=== PATIENT | male | born 1950 | race Caucasian/White ===

== ENCOUNTER 2023-11-02 09:43 | Outpatient (AMB) | payer MEDICARE, SELFPAY ==
--- NOTE | 2023-11-02 09:52 | A.OFFPC_ITS ---
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 Patient reports he needs medication refills. 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 Accompanied by: Self / Same As Patient Allergies No Known Allergies Allergy (Verified 11/02/23 10:02) Medication List - Last Reconciled 11/02/23 by Boubacar Gonzalez MD amlodipine 5 mg PO DAILY atorvastatin 40 mg PO DAILY cetirizine 10 mg PO DAILY PRN lisinopril-hydrochlorothiazide 20-25 mg 1 tab PO DAILY multivitamin 1 tab PO DAILY vit C-E-zinc ye-fbli-lry-zeax 250 mg-200 unit -12.5 mg-1 mg (ICaps AREDS2) caps PO Tobacco use date assessed: 11/02/23 Fall risk assessment: 1 Fall in past year (slipped on ice) Last assessed Fall Risk: 11/02/23 Dental Screening Dental Screen Date: 11/02/23 Did you have a dental visit in the last 12 months?: Yes Did you have a dental problem in the last 6 months where you did not have access to dental care?: No Was dental information given to patient?: Patient has dentist HPI 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 Dr Tariq Last office visit/CPE: CPE 1 yr ago Acute issue(s): Med Refill - Amlodipine PMHx: Aortic heart valve stenosis & Murmur. Dr Cherry. , HTN, HLD, Allergies Rhinitis. AMD Dr Shabazz SurgHx: R Leg, R Wrist. Laminectomies. L rotator cuff, R knee, R rotator Cuff . Biceps Tendon repair. FHx: Brother. Heart disease. SocHx: Quit in 1980s. EtOH; 6-8 beers a month. No drugs PFSH Medical History (Updated 11/02/23 @ 10:25 by Sincere Castanon) Broken wrist History of broken leg High cholesterol Hypertension Surgical History (Updated 11/02/23 @ 10:18 by Beronica Matson [facility]) History of knee surgery History of rotator cuff surgery History of laminectomy Social History Household Members: Children Both parents involved: No Caregiver staying overnight: No Housing: House Are you a primary home day care provider to a significant other at home: No Do you presently have visiting nurse or other home services: No 75 years or older and lives alone: No Alcohol intake: current Alcohol intake frequency: a few times a month Alcohol type: beer Patient Tobacco Use Status: Former Tobacco user Cigarette Packs Per Day: 1 Years Smoked: 20 e-Cigarette/Vaping Use: Never Used service: Yes ([employer] ) Current occupational status: retired Current occupational exposures/hazards: No Cognitive needs: No Hearing needs: Yes (wears hearing aids) Vision needs: No Questionnaire PHQ-9 Over the last 2 weeks, how often have you been bothered by any of the following problems? 1. Little interest or pleasure in doing things: not at all 2. Feeling down, depressed, or hopeless: not at all 3. Trouble falling or staying asleep, or sleeping too much: not at all 4. Feeling tired or having little energy: not at all 5. Poor appetite or overeating: not at all 6. Feeling bad about yourself - or that you are a failure or have let yourself or your family down: not at all 7. Trouble concentrating on things, such as reading the newspaper or watching television: not at all 8. Moving or speaking so slowly that other people could have noticed. Or the opposite - being so fidgety or restless that you have been moving around a lot more than usual: not at all 9. Thoughts that you would be better off or of hurting yourself in some way: not at all Total score: 0 Depression Screening Interpretation: Negative Depression Screening Done: Yes 26754 - PHQ-9 Billing: Yes Source: Developed by Drs. Ramon Valdovinos, Violeta Diaz, Dhaval Torrez and colleagues, with an educational rhina from [employer]. Thrive Questionnaire Date Thrive assessed: 11/02/23 I am a: Patient What is your living situation today?: I have a steady place to live Within the past 12 months, did the food you bought not last and you didn't have the money to get more?: Never true Within the past 12 months, did you worry whether your food would run out before you got money to buy more?: Never true Do you have trouble paying for medicines?: No Do you have trouble getting transportation to medical appointments?: No Do you have trouble paying your heating and electricity bill?: No Do you have trouble taking care of your child, family member or friend?: No Do you have trouble with day-to-day activities such as bathing, preparing meals, shopping, managing finances, etc.?: No Are you currently unemployed and looking for a job?: No Are you interested in more education?: No Please select the resources that you would like help with: None Currently or been in a relationship where the following occur: no concerns reported THRIVE Score: 0 AUDIT C Alcohol Use Questionnaire (AUDIT-C) 1. How often do you have a drink containing alcohol?: Never 3. How often do you have six or more drinks on one occasion?: Never Total Score: 0 RAN-7 AMB Questionnaire RAN-7 Date RAN - 7 assessed: 11/02/23 Feeling nervous, anxious, or on edge: 0 = Not at all Not being able to stop or control worryin = Not at all Worrying too much about different things: 0 = Not at all Trouble relaxin = Not at all Being so restless that it is hard to sit still: 0 = Not at all Becoming easily annoyed or irritable: 0 = Not at all Feeling afraid as if something awful might happen: 0 = Not at all Total RAN-7 score (0-4 normal; 5-9 mild; 10-14 moderate; 15-21 severe): 0 Source: Developed by Drs. Ramon Valdovinos, Violeta Diaz, Dhaval Torrez and colleagues, with an educational rhina from [employer]. RAN-7 Assessment Billing RAN-7 Assessment Tool: RAN-7 Assessment 52252 Review of Systems Const Denies chills, Denies fatigue, Denies fever(s), Denies headache(s) and Denies weakness ENT Denies dizziness and Denies headache(s) Card Denies chest pain, Denies lightheadedness, Denies dyspnea and Denies other (Palpitations) Resp Denies cough, Denies dyspnea, Denies wheezing and Denies other ( shortness of breath) Musc Denies numbness and Denies tingling Neuro Denies dizziness, Denies headache(s), Denies numbness, Denies tingling, Denies paresthesias and Denies weakness Psych Denies anxiety and Denies depression Endo Denies fatigue Aller/Immun Denies wheezing Physical exam (Primary Care) BMI result Body Mass Index 39.0 Depression Screening Interpretation: Negative Currently or been in a relationship where the following occur: no concerns reported Const General: no acute distress and well developed Nutritional Appearance: well nourished Orientation/consciousness: patient oriented x3 HENMT Head: Yes normocephalic and Yes atraumatic Eyes General: appearance normal, both eyes and all related structures Pupils: Equal, round and reactive pupils present EOM: EOMs intact bilaterally Resp Effort & Inspection: normal respiratory effort Auscultation: clear to auscultation bilaterally Cardio Rate: regular rate Rhythm: regular rhythm Heart sounds: Murmur heart sound present (5/6 loud systolic murmur) Neuro General: patient oriented x3 and gait normal Cranial nerves: Yes Equal, round and reactive pupils present Psych Affect: normal affect Assessment and Plan Assessment & Plan (1) Hypertension: Code(s): I10 - Essential (primary) hypertension Plan: Blood?pressure?is?controlled.??Goal?is?less?than?130/80?as?patient?has?an?aortic ?valve?stenosis Continue?current?medication?regimen (2) Aortic stenosis: Code(s): I35.0 - Nonrheumatic aortic (valve) stenosis Plan: 5/6?systolic?murmur?over?aortic?region Patient?says?he?is?followed?by??and?saw?him?about?a?year?ago. Should?follow-up - will?make?referral (3) High cholesterol: Code(s): E78.00 - Pure hypercholesterolemia, unspecified Plan: History?of?hyperlipidemia?and?taking?atorvastatin?40?mg?daily Check?lipids (4) Allergic rhinitis: Code(s): J30.9 - Allergic rhinitis, unspecified Plan: Continue?cetirizine (5) Heart murmur: Code(s): R01.1 - Cardiac murmur, unspecified Plan: As?above,?patient?has?history?of?aortic?stenosis.??Follow- up?with?Cardiology?as?recommended. (6) Laboratory exam ordered as part of routine general medical examination: Code(s): Z00.00 - Encounter for general adult medical examination without abnormal findings Plan: Check?labs Orders: Orders Comprehensive [place]. Panel Fast Today Z00.00 - Encounter for general adult medical examination without abnormal findings Complete Blood Count Auto Diff Today Z00.00 - Encounter for general adult medical examination without abnormal findings Lipid Panel Today Z00.00 - Encounter for general adult medical examination without abnormal findings Microalbumin, Random (w Creat) Today I10 - Essential (primary) hypertension TSH reflex Free T4 Today Z00.00 - Encounter for general adult medical examination without abnormal findings Prostate Specific Antigen Scr Today Z12.5 - Encounter for screening for malignant neoplasm of prostate UA and rflx microscopic Today Z00.00 - Encounter for general adult medical examination without abnormal findings Referrals Cardiology Referral I35.0 - Nonrheumatic aortic (valve) stenosis Medications: New amlodipine 5 mg PO DAILY 90 tabs 3RF 90 days Coding Level of Care Code New Pt Level 3 (14352) Diagnoses Hypertension I10 Aortic stenosis I35.0 High cholesterol E78.00 Allergic rhinitis J30.9 Heart murmur R01.1 Laboratory exam ordered as part of routine general medical examination Z00.00 Additional Codes RAN-7 Assessment Billing - RAN-7 Assessment Tool: RAN-7 Assessment 96705 ([id number])
[2023-11-02 09:54] VITALS: BP 118/52; PULSE 83; RESP 12; O2SAT 97; BMI 39.0
== END 2023-11-02 10:30 | disposition home or self-care (01) ==
PROVIDERS: PCP Family Medicine; Visit Provider Family Medicine
DX: I10 Essential (primary) hypertension (principal); I35.0 Nonrheumatic aortic (valve) stenosis; E78.00 Pure hypercholesterolemia, unspecified; J30.9 Allergic rhinitis, unspecified; R01.1 Cardiac murmur, unspecified; Z00.00 Encounter for general adult medical examination without abnormal findings
CPT/HCPCS: 99203

== ENCOUNTER 2023-11-02 10:54 | Outpatient (REF) | payer MEDICARE, SELFPAY ==
[2023-11-02 14:10] LABS: Appearance Urine Clear; Color Urine Yellow; Glucose Urine UA Negative (Negative); Leukocyte Esterase Urine Negative (Negative); Nitrite Urine Negative (Negative); Urine Blood Negative (Negative); Urine Ketones Negative (Negative); Urine Protein Negative (Neg-Trace)
[2023-11-02 14:18] LABS: Basophils Absolute Auto 0.1 X10*3/uL (0.0-0.2); Basophils Percent Auto 0.7 % (0-2); Eosinophils Absolute Auto 0.2 X10*3/uL (0.0-0.4); Eosinophils Percent Auto 1.6 % (0-4); Hematocrit 39.9 % (42.0-52.0); Hemoglobin 13.6 g/dl (14.0-18.0); Imm Gran Abs Auto 0.03 X10*3/uL (0.00-0.03); Imm Gran Pct Auto 0.3 % (0.0-0.4); Lymphocytes Absolute Auto 5.5 X10*3/uL (1.2-4.9); Lymphocytes Percent Auto 55.7 % (20-40); MANUAL DIFF FLAG SCAN; Mean Corpuscular HGB Conc 34.1 g/dl (31.0-36.0); Mean Corpuscular Hemoglobin 32.2 pg (27.0-33.0); Mean Corpuscular Volume 94.3 fL (80.0-98.0); Mean Platelet Volume 10.6 fL (9.4-12.4); Monocytes Absolute Auto 0.6 X10*3/uL (0.1-1.2); Monocytes Percent Auto 6.4 % (2-11); Neutrophils Absolute Auto 3.5 x10*3/uL (2.0-8.3); Neutrophils Percent Auto 35.3 % (45-73); Platelet Count 192 X10*3/uL (160-400); Red Blood Count 4.23 X10*6/uL (4.60-5.80); Red Cell Distribution Width 12.8 % (11.0-16.0); SCAN SMEAR FLAG 1; White Blood Count 9.8 X10*3/uL (4.8-10.8)
[2023-11-02 14:42] LABS: SLIDE REVIEW VERIFIED
[2023-11-02 14:48] LABS: Creatinine Urine 157.33 mg/dL
[2023-11-02 15:11] LABS: Alanine Aminotransferase 22 U/L (0-40); Albumin Level 4.6 g/dL (3.5-5.0); Alkaline Phosphatase 76 U/L (39-117); Anion Gap 13 (12-20); Aspartate Amino Transferase 27 U/L (5-37); Bilirubin Total 0.8 mg/dL (0.0-1.0); Blood Urea Nitrogen 26 mg/dL (9-16); Calcium 9.7 mg/dL (8.4-10.2); Carbon Dioxide 27 mmol/L (22-29); Chloride 104 mmol/L (96-108); Cholesterol 175 mg/dL (<200); Estimated Glomerular Filt Rate > 60; Glucose Fasting 103 mg/dL (60-99); HDL Cholesterol 52 mg/dL (>40); LDL Cholesterol Calculated 104 mg/dL (<100); Potassium 4.1 mmol/L (3.3-5.1); Sodium 140 mmol/L (135-145); Total Protein 7.3 g/dL (6.5-8.0); Triglycerides 95 mg/dL (<150)
[2023-11-02 15:16] LABS: Prostate Specific Antigen Scr 1.01 ng/mL (<0.05-4.0); TSH reflex Free T4 0.76 uIU/mL (0.32-4.0)
== END 2023-11-02 10:55 | disposition home or self-care (01) ==
LOC: HO.WFDLDS 10:54
PROVIDERS: Visit Provider Family Medicine
DX: Z00.00 Encounter for general adult medical examination without abnormal findings (principal); I10 Essential (primary) hypertension; Z12.5 Encounter for screening for malignant neoplasm of prostate
CPT/HCPCS: 36415; 80053; 80061; 81003; 82043; 82570; 84153; 84443; 85025

== ENCOUNTER 2024-05-04 08:27 | Outpatient (AMB) | payer MEDICARE, SELFPAY ==
--- NOTE | 2024-05-04 08:46 | MHC.PC.OV ---
Vital Signs 05/04/24 08:51 Height 5 ft 11 in Weight 218 lb 8 oz BMI 30.5 BP 120/58 L Blood Pressure Location Lt brachial Position Sitting Respiration 16 Pulse 75 Pulse Source Pulse Oximeter Temp 98.3 F Temp Source Tympanic Pulse Oximetry (%) 98 Oxygen Delivery Method Room Air Intake Visit Reasons: Rsch from 03/03 Intake Note: CPE Allergies No Known Allergies Allergy (Verified 05/04/24 08:49) Tobacco use date assessed: 05/04/24 Fall risk assessment: No Falls in past year Last assessed Fall Risk: 05/04/24 Dental Screening Dental Screen Date: 05/04/24 Did you have a dental visit in the last 12 months?: Yes Did you have a dental problem in the last 6 months where you did not have access to dental care?: No Was dental information given to patient?: Patient has dentist HPI Rsch from 03/03 HPI Details 73 y/o male presents for an extended exam with f/u labs and health maintenance. Hx of diastolic dysfunction and is followed by Dr. Cherry. Labs drawn 11/02/23. Reviewed labs with pt. Mild normocytic anemia. Denies any bleeding/blood in stools. Elevated fasting glucose of 103. Triglycerides 95. TC 175. LDL 104. HDL 52. He is on artovastatin 40mg daily. PSA 1.01. BP today 120/58, 75p. He is on amlodipine 5mg, lisinopril-HCTZ 20-25mg daily. Has complaints of ? pinworms. Complaints of some tendonitis. [facility] Medical History (Updated 05/04/24 @ 09:45 by Sincere Castanon) Broken wrist History of broken leg High cholesterol Hypertension Surgical History (Updated 11/02/23 @ 10:18 by Beronica Matson CMA) History of knee surgery History of rotator cuff surgery History of laminectomy Social History (Updated 05/04/24 @ 08:51 by Reina Ulloa MA) Household Members: Children Both parents involved: No Caregiver staying overnight: No Housing: House Are you a primary client care coordinator to a significant other at home: No Do you presently have visiting nurse or other home services: No 75 years or older and lives alone: No Alcohol intake: current Alcohol intake frequency: a few times a month Alcohol type: beer Patient Tobacco Use Status: Former Tobacco user Cigarette Packs Per Day: 1 Years Smoked: 20 e-Cigarette/Vaping Use: Never Used service: Yes ([employer] ) Current occupational status: retired Current occupational exposures/hazards: No Cognitive needs: No Hearing needs: Yes (wears hearing aids) Vision needs: No Questionnaire PHQ-9 Over the last 2 weeks, how often have you been bothered by any of the following problems? 1. Little interest or pleasure in doing things: not at all 2. Feeling down, depressed, or hopeless: not at all 3. Trouble falling or staying asleep, or sleeping too much: not at all 4. Feeling tired or having little energy: not at all 5. Poor appetite or overeating: not at all 6. Feeling bad about yourself - or that you are a failure or have let yourself or your family down: not at all 7. Trouble concentrating on things, such as reading the newspaper or watching television: not at all 8. Moving or speaking so slowly that other people could have noticed. Or the opposite - being so fidgety or restless that you have been moving around a lot more than usual: not at all 9. Thoughts that you would be better off or of hurting yourself in some way: not at all Total score: 0 Depression Screening Interpretation: Negative Depression Screening Done: Yes 69467 - PHQ-9 Billing: Yes Source: Developed by Drs. Ramon Valdovinos, Violeta Diaz, Dhaval Torrez and colleagues, with an educational rhina from [employer]. Thrive Questionnaire Date Thrive assessed: 05/04/24 I am a: Patient What is your living situation today?: I have a steady place to live Within the past 12 months, did the food you bought not last and you didn't have the money to get more?: Never true Within the past 12 months, did you worry whether your food would run out before you got money to buy more?: Never true Do you have trouble paying for medicines?: No Do you have trouble getting transportation to medical appointments?: No Do you have trouble paying your heating and electricity bill?: No Do you have trouble taking care of your child, family member or friend?: No Do you have trouble with day-to-day activities such as bathing, preparing meals, shopping, managing finances, etc.?: No Are you currently unemployed and looking for a job?: No Are you interested in more education?: No Please select the resources that you would like help with: None Currently or been in a relationship where the following occur: No concerns reported THRIVE Score: 0 AUDIT C Alcohol Use Questionnaire (AUDIT-C) 1. How often do you have a drink containing alcohol?: 2-4 times a month 2. How many drinks containing alcohol do you have on a typical day when you are drinking?: 1 or 2 3. How often do you have six or more drinks on one occasion?: Never Total Score: 2 Score Reviewed/Action Taken: Yes RAN-7 AMB Questionnaire RAN-7 Date RAN - 7 assessed: 05/04/24 Feeling nervous, anxious, or on edge: 0 = Not at all Not being able to stop or control worryin = Not at all Worrying too much about different things: 0 = Not at all Trouble relaxin = Not at all Being so restless that it is hard to sit still: 0 = Not at all Becoming easily annoyed or irritable: 0 = Not at all Feeling afraid as if something awful might happen: 0 = Not at all Total RAN-7 score (0-4 normal; 5-9 mild; 10-14 moderate; 15-21 severe): 0 Source: Developed by Drs. Ramon Valdovinos, Violeta Diaz, Dhaval Torrez and colleagues, with an educational rhina from [employer]. RAN-7 Assessment Billing RAN-7 Assessment Tool: RAN-7 Assessment 81744 Review of Systems Const Denies chills, Denies fatigue, Denies fever(s), Denies headache(s) and Denies weakness Eyes Denies change in vision ENT Denies dizziness, Denies headache(s), Denies hearing loss, Denies nasal congestion, Denies sinus pain, Denies sinus pressure and Denies sore throat Card Denies chest pain, Denies lightheadedness, Denies dyspnea and Denies other (palpitations) Resp Denies cough, Denies dyspnea and Denies wheezing GI Denies abdominal pain, Denies melena, Denies hematochezia, Denies change in bowel habits, Denies dyspepsia and Denies nausea Denies hematuria and Denies dysuria Musc Denies abnormal gait, Denies myalgias, Denies arthralgias, Denies numbness and Denies tingling Skin/Breast Denies rash, Denies unusual bruising and Denies wounds Neuro Denies abnormal gait, Denies dizziness, Denies headache(s), Denies memory loss, Denies numbness, Denies Sensory deficit (Neuro), Denies tingling and Denies weakness Psych Denies anxiety, Denies depression and Denies memory loss Endo Denies cold intolerance, Denies fatigue, Denies heat intolerance, Denies polydipsia and Denies polyuria Timbo/Lymph Denies easy bleeding and Denies easy bruising Aller/Immun Denies wheezing Physical exam (Primary Care) Vital Signs: Last Vital Signs Temp 98.3 F 05/04/24 08:51 Pulse 75 05/04/24 08:51 Resp 16 05/04/24 08:51 BP 120/58 L 05/04/24 08:51 Pulse Ox 98 05/04/24 08:51 Oxygen Delivery Method Room Air 05/04/24 08:51 BMI result Body Mass Index 30.5 Tobacco/Smoking Status: Tobacco use Status Tobacco use date assessed 05/04/24 05/04/24 08:53 Patient Tobacco Use Status Former Tobacco user 05/04/24 08:53 e-Cigarette/Vaping Use Never Used 05/04/24 08:53 PHQ-9: PHQ-9 Score PHQ-9: Total score 0 05/04/24 08:53 Depression Screening Interpretation: Negative Thrive Assessment: Date of Thrive Assessment Date Thrive assessed 05/04/24 05/04/24 08:53 Currently or been in a relationship where the following occur: No concerns reported Const General: no acute distress, well developed, alert and awake Nutritional Appearance: well nourished Orientation/consciousness: patient oriented x3 HENMT Head: Yes normocephalic and Yes atraumatic Ears: hearing grossly normal bilaterally and TM's normal bilaterally General nose exam: Normal external nose present and Normal nares present Mouth: Normal oral and palatal mucosa present and moist mucous membranes Teeth and gingiva: dentition normal Throat: Yes posterior oropharynx normal Eyes General: appearance normal, both eyes and all related structures Pupils: Equal, round and reactive pupils present and Pupil accommodation reflex normal EOM: EOMs intact bilaterally Neck Neck: Yes normal visual inspection, Yes no lymphadenopathy and Yes trachea midline Thyroid: Thyroid normal Carotids: no bruits Lymphatic: no lymphadenopathy noted Chest Chest palpation & inspection: normal inspection of the chest Resp Effort & Inspection: normal respiratory effort Auscultation: clear to auscultation bilaterally Cardio Rate: regular rate Rhythm: regular rhythm Heart sounds: Murmur heart sound present Bruits: no abdominal aortic bruits and no carotid bruits GI Palpation (GI): No Abdominal aortic bruit present, Soft to palpation, nontender, No hepatosplenomegaly present and No Rebound tenderness present Auscultation: normal bowel sounds General: Yes no CVA tenderness Back/Spine/Pelvis Back: no CVA tenderness Cervical Spine: cervical ROM normal and No Cervical spine tenderness Thoracic/Lumbar Spine: thoraco-lumbar ROM normal, No pain with thoraco-lumbar ROM, No thoracic spinal tenderness and No lumbar spinal tenderness Skin Lesions: no lesions Rashes: no rashes Trauma: no lacerations or abrasions Wounds: no wounds Nails: normal Neuro General: patient oriented x3 Cranial nerves: Yes Equal, round and reactive pupils present Cognition (Neuro): normal cognition Gait exam (Neuro): Normal gait present Motor exam (neuro): 5/5 motor strength present throughout Sensory Exam: No Sensory deficit (Neuro) Deep tendon reflexes (DTR's): Right patellar reflex intensity grade: 2+ and Left patellar reflex intensity grade: 2+ Extrem General: Yes normal to inspection and No edema Psych Appearance: grossly normal Affect: normal affect Attitude: cooperative Thought process: Normal thought process present Assessment and Plan Assessment & Plan (1) Diastolic dysfunction: Code(s): I51.89 - Other ill-defined heart diseases Plan: Stress Echo from 2021 showed: Aortic Stenosis, Normal EF, Normal Wall thickness, Normal regional wall motion abnormalities, mild diastolic dysfunction and ST changes during exercise suggestive of some exercise induced ischemia. However the summary says no evidence of ischemia which I question. (2) Aortic stenosis: Code(s): I35.0 - Nonrheumatic aortic (valve) stenosis Plan: Known?aortic?stenosis. Followed?by??Dilip Keep?blood?pressure?controlled?and?follow-up?with?Cardiology?as?recommended (3) Mild anemia: Code(s): D64.9 - Anemia, unspecified Plan: Mild?normocytic?anemia Will?repeat?this (4) Hypertension: Code(s): I10 - Essential (primary) hypertension (5) High cholesterol: Code(s): E78.00 - Pure hypercholesterolemia, unspecified Plan: LDL?cholesterol?is?above?goal. Slightly?above?100?and?patient?has?history?of?some?diastolic?dysfunction?and?stress?echo?from?2021?notes?some?ST?changes?with?exercise?suggestive?of?some?ischemia. Recommended?to?patient?that?we?increase?his?atorvastatin?and?maintain?a?goal?of?less?than?70 Follow-up?with?Cardiology (6) Screening for colon cancer: Code(s): Z12.11 - Encounter for screening for malignant neoplasm of colon Plan: Patient?had?a?colonoscopy?in?2020?with?Dr. Hunter which?showed?only?internal?hemorrhoids?but?otherwise?was?normal.??Recommended?follow-up?in?2030. Patient?will?be?79?years?old?and?this?will?likely?be?his?last?colonoscopy. Up-to-date (7) Screening for prostate cancer: Code(s): Z12.5 - Encounter for screening for malignant neoplasm of prostate Plan: PSA?was?normal Continue?annual?screening (8) Tendonitis: Code(s): M77.9 - Enthesopathy, unspecified Plan: Tendinitis?at?right?thumb Use?naproxen,?heat?and?gentle?stretching. If?worsening?or?not?improving,?will?refer?for?steroid?injection?therapy (9) Pinworms: Code(s): B80 - Enterobiasis Plan: Patient?notes?pinworms Will?check?ova?and?parasites?and?stool If?positive,?will?treat (10) Elevated fasting glucose: Code(s): R73.01 - Impaired fasting glucose Plan: Mildly?elevated?fasting?blood?sugar.??Patient?notes?that?he?has?been?told?he?has?had?pre?diabetes?in?the?past. Will?check?an?A1c?and?repeat?fasting?blood?sugar?as?patient?is?fasting?today. (11) Adult general medical exam: Code(s): Z00.00 - Encounter for general adult medical examination without abnormal findings Plan: 73-year-old?male?presents?for?an?extended?exam. Encouraged?healthy?diet?with?active?lifestyle?and?plenty?of?exercise Orders: Orders Ova and Parasite Today B80 - Enterobiasis Leukocytes Stool Qualitative Today B80 - Enterobiasis Complete Blood Count Auto Diff Today D64.9 - Anemia, unspecified, Z00.00 - Encounter for general adult medical examination without abnormal findings Hemoglobin A1c Today R73.01 - Impaired fasting glucose Comprehensive [place]. Panel Fast Today R73.01 - Impaired fasting glucose, Z00.00 - Encounter for general adult medical examination without abnormal findings Coding Level of Care Code Est Pt Level 4 (64292) Diagnoses Diastolic dysfunction I51.89 Aortic stenosis I35.0 Mild anemia D64.9 Hypertension I10 High cholesterol E78.00 Screening for colon cancer Z12.11 Screening for prostate cancer Z12.5 Tendonitis M77.9 Pinworms B80 Elevated fasting glucose R73.01 Adult general medical exam Z00.00 Additional Codes RAN-7 Assessment Billing - RAN-7 Assessment Tool: RAN-7 Assessment 92150 ([id number])
[2024-05-04 08:51] VITALS: BP 120/58; PULSE 75; RESP 16; TEMP 36.8; O2SAT 98; BMI 30.5
== END 2024-05-04 09:45 | disposition home or self-care (01) ==
PROVIDERS: PCP Family Medicine; Visit Provider Family Medicine
DX: I51.89 Other ill-defined heart diseases (principal); I35.0 Nonrheumatic aortic (valve) stenosis; D64.9 Anemia, unspecified; I10 Essential (primary) hypertension; E78.00 Pure hypercholesterolemia, unspecified; Z12.11 Encounter for screening for malignant neoplasm of colon; Z12.5 Encounter for screening for malignant neoplasm of prostate; M77.9 Enthesopathy, unspecified; B80 Enterobiasis; R73.01 Impaired fasting glucose; Z00.00 Encounter for general adult medical examination without abnormal findings

== ENCOUNTER → 2024-05-04 08:27 | Outpatient (BNVA) | payer MEDICARE, SELFPAY | PROVIDERS: PCP Family Medicine; Visit Provider Family Medicine | DX: Z00.01 Encounter for general adult medical examination with abnormal findings (principal); I11.9 Hypertensive heart disease without heart failure; I35.0 Nonrheumatic aortic (valve) stenosis; D64.9 Anemia, unspecified; E78.00 Pure hypercholesterolemia, unspecified; M77.9 Enthesopathy, unspecified; B80 Enterobiasis; R73.01 Impaired fasting glucose | CPT/HCPCS: 96127; 99212 ==

== ENCOUNTER 2024-05-04 09:53 | Outpatient (REF) | payer MEDICARE, SELFPAY ==
[2024-05-04 14:31] LABS: Basophils Absolute Auto 0.1 X10*3/uL (0.0-0.2); Basophils Percent Auto 0.5 % (0-2); Eosinophils Absolute Auto 0.3 X10*3/uL (0.0-0.4); Hemoglobin 13.7 g/dl (14.0-18.0); Imm Gran Abs Auto 0.03 X10*3/uL (0.00-0.03); Imm Gran Pct Auto 0.2 % (0.0-0.4); Lymphocytes Percent Auto 61.6 % (20-40); MANUAL DIFF FLAG SCAN; Mean Corpuscular HGB Conc 33.4 g/dl (31.0-36.0); Mean Corpuscular Hemoglobin 32.5 pg (27.0-33.0); Mean Corpuscular Volume 97.4 fL (80.0-98.0); Mean Platelet Volume 10.3 fL (9.4-12.4); Monocytes Percent Auto 7.4 % (2-11); Neutrophils Absolute Auto 3.7 x10*3/uL (2.0-8.3); Neutrophils Percent Auto 28.3 % (45-73); Platelet Count 178 X10*3/uL (160-400); Red Blood Count 4.21 X10*6/uL (4.60-5.80); SCAN SMEAR FLAG 1; White Blood Count 13.2 X10*3/uL (4.8-10.8)
[2024-05-04 14:36] LABS: Estimated Average Glucose 108 mg/dL; Hemoglobin A1c % 5.4 % (<6.0); Total Hemoglobin (HGBA1C) 3407.4814 umol/L
[2024-05-04 14:46] LABS: Lymphocytes Absolute Auto 8.1 X10*3/uL (1.2-4.9)
[2024-05-04 15:19] LABS: Alanine Aminotransferase 40 U/L (0-40); Albumin Level 4.4 g/dL (3.5-5.0); Alkaline Phosphatase 67 U/L (39-117); Anion Gap 11 (12-20); Aspartate Amino Transferase 48 U/L (5-37); Bilirubin Total 0.6 mg/dL (0.0-1.0); Blood Urea Nitrogen 28 mg/dL (9-16); Calcium 9.7 mg/dL (8.4-10.2); Carbon Dioxide 29 mmol/L (22-29); Chloride 106 mmol/L (96-108); Estimated Glomerular Filt Rate 58; Glucose Fasting 110 mg/dL (60-99); Potassium 4.4 mmol/L (3.3-5.1); Sodium 142 mmol/L (135-145); Total Protein 7.1 g/dL (6.5-8.0)
[2024-05-04 15:49] LABS: SLIDE REVIEW VERIFIED
== END 2024-05-04 09:54 | disposition home or self-care (01) ==
LOC: HO.WFDLDS 09:53
PROVIDERS: Visit Provider Family Medicine
DX: Z00.00 Encounter for general adult medical examination without abnormal findings (principal); R73.01 Impaired fasting glucose; D64.9 Anemia, unspecified
CPT/HCPCS: 36415; 80053; 83036; 85025

== ENCOUNTER 2024-05-05 11:48 | Outpatient (REF) | payer MEDICARE, SELFPAY ==
[2024-05-05 13:24] LABS: Leukocytes Stool Qualitative NEGATIVE (NEGATIVE)
== END 2024-05-05 11:49 | disposition home or self-care (01) ==
LOC: HO.LNP 11:48
PROVIDERS: Visit Provider Family Medicine
DX: B80 Enterobiasis (principal)
CPT/HCPCS: 87177; 87209; 89055

== ENCOUNTER 2024-06-22 15:27 | Outpatient (AMB) | payer MEDICARE, SELFPAY ==
--- NOTE | 2024-06-22 15:40 | MHC.PC.OV ---
Vital Signs 06/22/24 15:41 Height 5 ft 11 in Weight 221 lb BMI 30.8 BP 120/60 Blood Pressure Location Rt brachial Position Sitting Respiration 14 Pulse 76 Pulse Source Pulse Oximeter Temp 97.1 F Temp Source Oral Pulse Oximetry (%) 96 Oxygen Delivery Method Room Air Intake Visit Reasons: f/u labs Intake Note: f/u labs Allergies No Known Allergies Allergy (Verified 06/22/24 15:41) Tobacco use date assessed: 05/04/24 Dental Screening Dental Screen Date: 05/04/24 HPI f/u labs HPI Details 73 y/o male presents to f/u labs. Labs drawn 05/04/24. Reviewed labs with pt. A1c 5.4%. Fasting glucose 110. Elevated AST of 48, ALT 40. No recent lipid panel. He is on artovastatin 80mg daily. Blood pressure today 120/60, 76p. HPI Comments History of Present Illness Details Documentation assistance for Boubacar Gonzalez MD, was provided by Sincere Castanon,? School Bus Aide on 06/22/2024 at 3:58 PM EST. I, Dr. Gonzalez, have read, observed, and verified documentation. [facility] Medical History (Updated 06/22/24 @ 16:02 by Sincere Castanon) Broken wrist History of broken leg High cholesterol Hypertension Surgical History (Updated 11/02/23 @ 10:18 by Beronica Matson [facility]) History of knee surgery History of rotator cuff surgery History of laminectomy Social History (Updated 05/04/24 @ 08:51 by Reina Ulloa [facility]) Household Members: Children Both parents involved: No Caregiver staying overnight: No Housing: House Are you a primary palliative care nurse to a significant other at home: No Do you presently have visiting nurse or other home services: No 75 years or older and lives alone: No Alcohol intake: current Alcohol intake frequency: a few times a month Alcohol type: beer Patient Tobacco Use Status: Former Tobacco user Cigarette Packs Per Day: 1 Years Smoked: 20 e-Cigarette/Vaping Use: Never Used service: Yes ([employer] ) Current occupational status: retired Current occupational exposures/hazards: No Cognitive needs: No Hearing needs: Yes (wears hearing aids) Vision needs: No Questionnaire PHQ-9 Over the last 2 weeks, how often have you been bothered by any of the following problems? 1. Little interest or pleasure in doing things: not at all 2. Feeling down, depressed, or hopeless: not at all 3. Trouble falling or staying asleep, or sleeping too much: not at all 4. Feeling tired or having little energy: not at all 5. Poor appetite or overeating: not at all 6. Feeling bad about yourself - or that you are a failure or have let yourself or your family down: not at all 7. Trouble concentrating on things, such as reading the newspaper or watching television: not at all 8. Moving or speaking so slowly that other people could have noticed. Or the opposite - being so fidgety or restless that you have been moving around a lot more than usual: not at all 9. Thoughts that you would be better off or of hurting yourself in some way: not at all Total score: 0 Source: Developed by Drs. Ramon Valdovinos, Violeta Diaz, Dhaval Torrez and colleagues, with an educational rhina from [employer] Thrive Questionnaire Date Thrive assessed: 06/17/24 I am a: Patient What is your living situation today?: I have a steady place to live Within the past 12 months, did the food you bought not last and you didn't have the money to get more?: Never true Within the past 12 months, did you worry whether your food would run out before you got money to buy more?: Never true Do you have trouble paying for medicines?: No Do you have trouble getting transportation to medical appointments?: No Do you have trouble paying your heating and electricity bill?: No Do you have trouble taking care of your child, family member or friend?: No Do you have trouble with day-to-day activities such as bathing, preparing meals, shopping, managing finances, etc.?: No Are you currently unemployed and looking for a job?: No Are you interested in more education?: No Please select the resources that you would like help with: None Currently or been in a relationship where the following occur: No concerns reported THRIVE Score: 0 AUDIT C Alcohol Use Questionnaire (AUDIT-C) 1. How often do you have a drink containing alcohol?: 2-4 times a month Total Score: 2 RAN-7 AMB Questionnaire RAN-7 Date RAN - 7 assessed: 05/04/24 Feeling nervous, anxious, or on edge: 0 = Not at all Not being able to stop or control worryin = Not at all Worrying too much about different things: 0 = Not at all Trouble relaxin = Not at all Being so restless that it is hard to sit still: 0 = Not at all Becoming easily annoyed or irritable: 0 = Not at all Feeling afraid as if something awful might happen: 0 = Not at all Total RAN-7 score (0-4 normal; 5-9 mild; 10-14 moderate; 15-21 severe): 0 Source: Developed by Drs. Ramon Valdovinos, Violeta Diaz, Dhaval Torrez and colleagues, with an educational rhina from [employer] Review of Systems Const Denies chills, Denies fatigue, Denies fever(s), Denies headache(s) and Denies weakness ENT Denies dizziness and Denies headache(s) Card Denies dyspnea Resp Denies cough, Denies dyspnea, Denies wheezing and Denies other (shortness of breath) Musc Denies numbness and Denies tingling Neuro Denies dizziness, Denies headache(s), Denies numbness, Denies tingling and Denies weakness Psych Denies anxiety and Denies depression Endo Denies fatigue Aller/Immun Denies wheezing Physical exam (Primary Care) Vital Signs: Last Vital Signs Temp 97.1 F 06/22/24 15:41 Pulse 76 06/22/24 15:41 Resp 14 06/22/24 15:41 BP 120/60 06/22/24 15:41 Pulse Ox 96 06/22/24 15:41 Oxygen Delivery Method Room Air 06/22/24 15:41 BMI result Body Mass Index 30.8 Tobacco/Smoking Status: Tobacco use Status Tobacco use date assessed 05/04/24 06/22/24 15:43 Patient Tobacco Use Status Former Tobacco user 06/22/24 15:43 e-Cigarette/Vaping Use Never Used 06/22/24 15:43 PHQ-9: PHQ-9 Score PHQ-9: Total score 0 06/22/24 15:43 Thrive Assessment: Date of Thrive Assessment Date Thrive assessed 06/17/24 06/22/24 15:43 Currently or been in a relationship where the following occur: No concerns reported Const General: well developed; No acute distress Nutritional Appearance: well nourished Orientation/consciousness: patient oriented x3 HENMT Head: Yes normocephalic and Yes atraumatic Eyes General: appearance normal, both eyes and all related structures Pupils: Equal, round and reactive pupils present EOM: EOMs intact bilaterally Resp Effort & Inspection: normal respiratory effort Neuro General: patient oriented x3 and gait normal Cranial nerves: Yes Equal, round and reactive pupils present Psych Affect: normal affect Coding Level of Care Code Est Pt Level 4 (09088) Diagnoses Aortic stenosis I35.0 Heart murmur R01.1 Hypertension I10 High cholesterol E78.00 Elevated liver enzymes R74.8 Elevated fasting glucose R73.01 Neoplasm of uncertain behavior of skin D48.5 Sun-damaged skin L57.8 Anemia D64.9 Assessment & Plan Assessment & Plan (1) Aortic stenosis: Code(s): I35.0 - Nonrheumatic aortic (valve) stenosis Category: Medical Plan: Followed?by?Dr. Cherry He?noted?an?increase?in?murmur?and?ordered?a repeat?echocardiogram?to?compare?with?his?2021?echo This?is?scheduled. Patient?is?asymptomatic (2) Heart murmur: Code(s): R01.1 - Cardiac murmur, unspecified Category: Medical Plan: As?above (3) Hypertension: Code(s): I10 - Essential (primary) hypertension Category: Medical Plan: Blood?pressure?is?controlled.??Goal?is?less?than?130/80 Continue?current?medication?regimen (4) High cholesterol: Code(s): E78.00 - Pure hypercholesterolemia, unspecified Category: Medical Plan: Had?increased?his?atorvastatin?due?to?diastolic?dysfunction?and?LDL?greater?than?100 We?can?check?this?again?prior?to?his?next?visit (5) Elevated liver enzymes: Code(s): R74.8 - Abnormal levels of other serum enzymes Category: Medical Plan: Mildly?elevated?liver?enzymes. This?result?was?prior?to?increase?in?atorvastatin?so?not?due?to?that Will?recheck?liver?enzyme Encouraged?good?hydration?and?weight?loss (6) Elevated fasting glucose: Code(s): R73.01 - Impaired fasting glucose Category: Medical Plan: Mildly?elevated?fasting?blood?sugars?but?A1c?5.4%?is?in?upper?normal?range Encouraged?diet?lower?in?sugars?and?starches We?can?follow-up?periodically (7) Neoplasm of uncertain behavior of skin: Code(s): D48.5 - Neoplasm of uncertain behavior of skin Category: Medical Plan: Referred?to?dermatology (8) Sun-damaged skin: Code(s): L57.8 - Other skin changes due to chronic exposure to nonionizing radiation Category: Medical Plan: As?above (9) Anemia: Code(s): D64.9 - Anemia, unspecified Category: Medical Plan: Mild?stable?appearing?anemia Will?recheck?this. Orders: Orders Lipid Panel Today I51.89 - Other ill-defined heart diseases, Z00.00 - Encounter for general adult medical examination without abnormal findings Complete Blood Count Auto Diff Today D64.9 - Anemia, unspecified, Z00.00 - Encounter for general adult medical examination without abnormal findings Comprehensive Met. Panel Today I10 - Essential (primary) hypertension Comprehensive [place]. Panel Fast Today R74.8 - Abnormal levels of other serum enzymes, Z00.00 - Encounter for general adult medical examination without abnormal findings Hemoglobin A1c Today R73.01 - Impaired fasting glucose
[2024-06-22 15:41] VITALS: BP 120/60; PULSE 76; RESP 14; TEMP 36.2; O2SAT 96; BMI 30.8
== END 2024-06-22 15:59 | disposition home or self-care (01) ==
LOC: HO.HMCFM 15:28
PROVIDERS: PCP Family Medicine; Visit Provider Family Medicine
DX: I35.0 Nonrheumatic aortic (valve) stenosis (principal); R01.1 Cardiac murmur, unspecified; I10 Essential (primary) hypertension; E78.00 Pure hypercholesterolemia, unspecified; R74.8 Abnormal levels of other serum enzymes; R73.01 Impaired fasting glucose; D48.5 Neoplasm of uncertain behavior of skin; L57.8 Other skin changes due to chronic exposure to nonionizing radiation; D64.9 Anemia, unspecified

== ENCOUNTER → 2024-06-22 15:27 | Outpatient (BNVA) | payer MEDICARE, SELFPAY | PROVIDERS: PCP Family Medicine; Visit Provider Family Medicine | DX: I35.0 Nonrheumatic aortic (valve) stenosis (principal); R01.1 Cardiac murmur, unspecified; I10 Essential (primary) hypertension; E78.00 Pure hypercholesterolemia, unspecified; R74.8 Abnormal levels of other serum enzymes; R73.01 Impaired fasting glucose; D48.5 Neoplasm of uncertain behavior of skin; L57.8 Other skin changes due to chronic exposure to nonionizing radiation; D64.9 Anemia, unspecified | CPT/HCPCS: 96127; 99212 ==

== ENCOUNTER 2024-07-29 10:45 | Outpatient (AMB) | payer MEDICARE, SELFPAY ==
--- NOTE | 2024-07-29 11:25 | MHC.PC.OV ---
Vital Signs 07/29/24 11:38 Height 5 ft 11 in Weight 207 lb 6 oz BMI 28.9 BP 128/60 Blood Pressure Location Lt brachial Position Sitting Pulse 84 Pulse Source Pulse Oximeter Pulse Oximetry (%) 99 Oxygen Delivery Method Room Air Intake Visit Reasons: [facility] /tick bite /leukemia Intake Note: Hospital follow up. HCTZ was stopped in the hospital. Hospital put pt on 40 mg of Atorvastatin instead of the 80 mg. 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 Presented to [facility] with sob, dizziness, AMS, fevers. Found to have hypoxia, ZACH, abnormal LFTs, lymphadenopathy, splenomegaly and abnormal CBC concerning for lymphoma. Was transferred to [facility] for hematology eval and further management. Diagnosed with Babesia infection and biopsy showed CLL. BP today 128/60, 84p. He is on amlodipine 5mg daily. [facility] Medical History (Updated 07/29/24 @ 12:23 by Sincere Castanon) Broken wrist History of broken leg High cholesterol Hypertension Surgical History (Updated 11/02/23 @ 10:18 by Beronica Matson [facility]) History of knee surgery History of rotator cuff surgery History of laminectomy Social History (Updated 05/04/24 @ 08:51 by YANE Moore) Household Members: Children Both parents involved: No Caregiver staying overnight: No Housing: House Are you a primary post acute care registered nurse to a significant other at home: No Do you presently have visiting nurse or other home services: No 75 years or older and lives alone: No Alcohol intake: current Alcohol intake frequency: a few times a month Alcohol type: beer Patient Tobacco Use Status: Former Tobacco user Cigarette Packs Per Day: 1 Years Smoked: 20 Packs Per Year: 20 e-Cigarette/Vaping Use: Never Used service: Yes ([employer] ) Current occupational status: retired Current occupational exposures/hazards: No Cognitive needs: No Hearing needs: Yes (wears hearing aids) Vision needs: No Questionnaire Thrive Questionnaire Date Thrive assessed: 06/17/24 I am a: Patient What is your living situation today?: I have a steady place to live Within the past 12 months, did the food you bought not last and you didn't have the money to get more?: Never true Within the past 12 months, did you worry whether your food would run out before you got money to buy more?: Never true Do you have trouble paying for medicines?: No Do you have trouble getting transportation to medical appointments?: No Do you have trouble paying your heating and electricity bill?: No Do you have trouble taking care of your child, family member or friend?: No Do you have trouble with day-to-day activities such as bathing, preparing meals, shopping, managing finances, etc.?: No Are you currently unemployed and looking for a job?: No Are you interested in more education?: No Please select the resources that you would like help with: None Currently or been in a relationship where the following occur: No concerns reported THRIVE Score: 0 RAN-7 AMB Questionnaire RAN-7 Date RAN - 7 assessed: 05/04/24 Source: Developed by Drs. Ramon Valdovinos, Violeta Diaz, Dhaval Torrez and colleagues, with an educational rhina from [employer]. Review of Systems Const Denies chills, Denies fatigue, Denies fever(s), Denies headache(s) and Denies weakness ENT Denies dizziness and Denies headache(s) Card Denies dyspnea Resp Denies cough, Denies dyspnea, Denies wheezing and Denies other (shortness of breath) Musc Denies numbness and Denies tingling Neuro Denies dizziness, Denies headache(s), Denies numbness, Denies tingling and Denies weakness Psych Denies anxiety and Denies depression Endo Denies fatigue Aller/Immun Denies wheezing Physical exam (Primary Care) Vital Signs: Last Vital Signs Pulse 84 07/29/24 11:38 BP 128/60 07/29/24 11:38 Pulse Ox 99 07/29/24 11:38 Oxygen Delivery Method Room Air 07/29/24 11:38 BMI result Body Mass Index 28.9 Tobacco/Smoking Status: Tobacco use Status Tobacco use date assessed 05/04/24 07/29/24 11:45 Patient Tobacco Use Status Former Tobacco user 07/29/24 11:45 e-Cigarette/Vaping Use Never Used 07/29/24 11:45 Thrive Assessment: Date of Thrive Assessment Date Thrive assessed 06/17/24 07/29/24 11:45 Currently or been in a relationship where the following occur: No concerns reported Const General: well developed; No acute distress Nutritional Appearance: well nourished Orientation/consciousness: patient oriented x3 HENMT Head: Yes normocephalic and Yes atraumatic Eyes General: appearance normal, both eyes and all related structures Pupils: Equal, round and reactive pupils present EOM: EOMs intact bilaterally Resp Effort & Inspection: normal respiratory effort Auscultation: clear to auscultation bilaterally Cardio Rate: regular rate Rhythm: regular rhythm Heart sounds: S1 normal heart sound present, S2 normal heart sound present, no gallops, Murmur heart sound present and no rubs Neuro General: patient oriented x3 and gait normal Cranial nerves: Yes Equal, round and reactive pupils present Psych Affect: normal affect Coding Level of Care Code Est Pt Level 4 (63698) Diagnoses 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 Now?s/p?antibiotic?therapy Patient?had?not?followed?up?with?Infectious?Disease?and?I?will?make?a?referral (2) CLL (chronic lymphocytic leukemia): Code(s): C91.10 - Chronic lymphocytic leukemia of B-cell type not having achieved remission Category: Medical Plan: Followed?by?Hematology-Oncology Had?significant?anemia?wall?at?hospital?and?was?transfused-see?below Follow-up?with?Hematology-Oncology?as?recommended (3) Anemia: Code(s): D64.9 - Anemia, unspecified Category: Medical Plan: Patient?received?transfusion?as?inpatient?for?hemoglobin <7 Hemoglobin?was?8.7?at?discharge Will?recheck (4) Acute kidney injury: Code(s): N17.9 - Acute kidney failure, unspecified Category: Medical Plan: Creatinine?had?risen?to?2.7?and?back?to?0.9?at?discharge. Hydrate?well He?is?off?lisinopril?and?hydrochlorothiazide?but?blood?pressure?remains?controlled Will?recheck?creatinine?level (5) Hypertension: Code(s): I10 - Essential (primary) hypertension Category: Medical Plan: Lisinopril?and?hydrochlorothiazide?were?discontinued?in?the?hospital. Blood?pressure?is?around?130/70. Goal?for?patient?is?less?than?130/80 He?checks?his?blood?pressures?at?home.??He?will?let?know?if?blood?pressures?are?consistently?elevated Currently?on?amlodipine?and?will?continue?amlodipine. Orders: Orders Complete Blood Count Auto Diff Today D64.9 - Anemia, unspecified, Z00.00 - Encounter for general adult medical examination without abnormal findings Comprehensive Met. Panel Today N17.9 - Acute kidney failure, unspecified Referrals Infectious Disease Referral B60.00 - Babesiosis, unspecified
[2024-07-29 11:38] VITALS: BP 128/60; PULSE 84; O2SAT 99; BMI 28.9
== END 2024-07-29 13:34 | disposition home or self-care (01) ==
PROVIDERS: PCP Family Medicine; Visit Provider Family Medicine
DX: B60.00 Babesiosis, unspecified (principal); C91.10 Chronic lymphocytic leukemia of B-cell type not having achieved remission; D64.9 Anemia, unspecified; N17.9 Acute kidney failure, unspecified; I10 Essential (primary) hypertension

== ENCOUNTER → 2024-07-29 10:45 | Outpatient (BNVA) | payer MEDICARE, SELFPAY | PROVIDERS: PCP Family Medicine; Visit Provider Family Medicine | DX: B60.00 Babesiosis, unspecified (principal); C91.10 Chronic lymphocytic leukemia of B-cell type not having achieved remission; N18.9 Chronic kidney disease, unspecified; I10 Essential (primary) hypertension | CPT/HCPCS: 99212 ==

== ENCOUNTER 2024-09-23 12:47 | Outpatient (REF) | payer MEDICARE, SELFPAY ==
--- NOTE | ~2024-09-23 | XR_ITS ---
EXAMINATION: XR CHEST 2 VIEWS HISTORY: R05.9 - Cough, unspecified COMPARISON: There are no prior studies for comparison. FINDINGS: PA and lateral views of the chest are submitted. There is a right-sided port with its tip at the cavoatrial junction. There is patchy airspace opacity posteriorly on the lateral view, consistent with lower lobe pneumonia. This is not well visualized on the frontal view, but may be in the right lower lobe. There is no pleural effusion, pneumothorax, or pulmonary vascular congestion. The heart is normal in size. The bones are intact. XR/XR chest 2V IMPRESSION: Lower lobe pneumonia, best seen on the lateral view, and likely in the right lower lobe. Follow-up is recommended to document resolution. Electronically signed by: Ramon Armenta MD 09/23/2024 02:20 PM JANESSA TAMAYO
--- OUTSIDE RECORDS SUMMARY | 2024-09-23 14:24 | XMS_ITS | Clinical Summary ---
Author Organization [facility] Address [address] [place] [address] Care Team Providers Care English Professor Name Role Phone Feroz Lima MD Primary Care Provider [phone] Allergies No known active allergies Medications Medication Sig Dispensed Refills Start Date End Date Status lisinopril-hydrochlo rothiazide (PRINZIDE,ZESTORETIC ) tablet 20-25 mg 0 02/13/2018 Active simvastatin (ZOCOR) tablet 20 mg 0 02/26/2018 Active naproxen (NAPROSYN) 500 MG tablet 0 02/22/2018 Active FLUAD 0.5 ML BONITA 0 05/11/2018 Active loratadine (CLARITIN) 10 MG tablet Take 10 mg by mouth. 0 Active diazePAM (VALIUM) tablet 5 mg 0 09/21/2018 Active promethazine (PHENERGAN) 12.5 MG tablet Take 1 tablet (12.5 mg total) by mouth every 8 (eight) hours as needed for nausea. Do not take until after surgery 4 tablet 0 11/08/2018 Active cephalexin (KEFLEX) 500 MG capsule Take 1 capsule (500 mg total) by mouth 4 (four) times a day. Do not take until after surgery 4 capsule 0 11/08/2018 Active atorvastatin (LIPITOR) tablet 40 mg TAKE ONE TABLET BY MOUTH EVERY DAY 0 10/12/2019 Active betamethasone dipropionate (DIPROSONE) 0.05 % cream APPLY SPARINGLY TO AFFECTED AREAS ON HANDS 2-4 TIMES A DAY IF NEEDED AFTER WASHING THEM AND BEFORE PUTTING ON MOISTURIZER 0 09/09/2019 Active Active Problems Problem Noted Date Diagnosed Date Incomplete tear of right rotator cuff 09/16/2018 Right shoulder injury 07/21/2018 Impingement syndrome of right shoulder region Arthritis of right acromioclavicular joint 07/21 Postoperative visit 05/26/2018 Acute medial meniscal tear, right, subsequent en counter 03/26/2018 Right knee injury, initial encounter 03/12/2018 Family History Medical History Relation Name Comments Hypertension Mother Relation Name Status Comments Mother Social History Tobacco Use Types Packs/Day Years Used Date Smoking Tobacco: Former Cigarettes Q uit: 1980 Smokeless Tobacco: Never Alcohol Use Standard Drinks/Week Comments Yes 1 (1 standard drink = 0.6 oz pur e alcohol) Sex and Gender Information Value Date Recorded Sex Assigned at Not on file Gender Identity Not on file Sexual Orientation Not on file Last Filed Vital Signs Vital Sign Reading Time Taken Comments Blood Pressure - - Pulse - - Temperature - - Respiratory Rate - - Oxygen Saturation - - Inhaled Oxygen Concentration - - Weight 99.8 kg (220 lb) 10/24/2019 9:12 AM EDT Height 182.9 cm (6') 10/24/2019 9:12 AM EDT Body Mass Index 29.84 10/24/2019 9:12 AM EDT Plan of Treatment Health Maintenance Due Date Last Done Comments Hepatitis C Screening 1950 COVID-19 Vaccine (#1) 03[birth year]15/1950 Depression Screening 1961 Preventative Health Evaluation 1967 DTap / Tdap / Td (1 - Tdap) 1968 Colon Cancer Screening (Colonoscopy) 1994 Shingrix-Zoster Vaccine (1 of 2) 1999 Fall Risk Assessment 2014 Pneumococcal Vaccine (1 of 1 - PCV) 2014 Influenza Vaccine (#1) 2024 RSV Adult > 60+ Yrs or Pregn ant (1 - 1-dose 75+ series) 2024 Hepatitis B Vaccines Aged Out No long er eligible based on patient's age to complete this topic RSV Ped < 20 months Aged Out No longe r eligible based on patient's age to complete this topic Care Teams English Professor Relationship Specialty Start Date End Date Feroz Lima MD [address] [place] [id number] PCP - General Internal Medicine 02/26/18
[2024-09-23 18:44] LABS: Influenza A PCR POSITIVE (Negative); Influenza B PCR NEGATIVE (Negative); Resp Syncy Virus RNA Qual PCR NEGATIVE (Negative); SARS COV2 PCR INHOUSE NEGATIVE (Negative)
== END 2024-09-23 12:48 | disposition home or self-care (01) ==
LOC: HO.HMGCX 12:47
PROVIDERS: PCP Family Medicine; Visit Provider Nurse Practitioner Family
DX: J18.1 Lobar pneumonia, unspecified organism (principal)
CPT/HCPCS: 0241U; 71046; 99212

== ENCOUNTER → 2024-09-23 12:47 | Outpatient (AMB) ==
--- NOTE | 2024-09-23 13:32 | MHC.OFFWIV ---
Intake Vital Signs 09/23/24 13:33 Height 5 ft 11 in Pulse 104 H Pulse Source Pulse Oximeter Temp 97.9 F Pulse Oximetry (%) 95 Oxygen Delivery Method Room Air Intake Visit Reasons: chest congestion, coughing Patient Tobacco Use Status: Former Tobacco user Allergies No Known Allergies Allergy (Verified 09/23/24 13:32) Medication List - Last Reconciled 09/23/24 by Andie Vargas, CVOR NURSE-BC allopurinol 100 mg PO DAILY amlodipine 5 mg PO DAILY 90 days atorvastatin 40 mg PO DAILY multivitamin 1 tab PO DAILY pantoprazole 40 mg PO DAILY vit C-E-zinc xr-sbgj-ohj-zeax 250 mg-200 unit -12.5 mg-1 mg (ICaps AREDS2) caps PO HPI HPI Comments History of Present Illness Details The patient is a 74-year-old male presenting with a persistent cough. This cough initially began approximately three to four weeks prior and temporarily resolved after four or five days, only to return as a dry cough last . The patient reports that he has been experiencing this cough for at least two weeks since its recurrence. The cough is persistent, noted to be severe enough to lead to significant concern about potential exacerbations or complications, such as respiratory infection. The patient denies coughing up blood, fever, or chills; however, he notes feeling hot after a coughing fit. An occasional right ear pain is reported without an accompanying sore throat. The patient's cough is dry, with no productive component. He has taken various yngy-jjm-rzejojf remedies, including Tylenol and cough suppressant medications, such as Delsum, at night every six hours, but has found them insufficient in alleviating his symptoms. The patient has a history of hematological malignancies: lymphoma and leukemia. He has been on prednisone as part of his management, with his dosage tapering down to 2.5 mg, with the last dose scheduled for the following day. The patient was already COVID tested at home twice within the past week with negative results. Vaccination against influenza was confirmed. There is no swelling noted in the lower extremities. Physical Exam General: Awake, alert. Mildly ill-appearing no distress, accompanied by Eyes: Sclera and conjunctiva clear bilaterally Nose: Nares clear nasal drainage, turbinates within normal limits, no sinus tenderness with palpation bilaterally Ears: Tympanic membranes intact and clear bilaterally Throat: Moist mucosa membrane, pharynx within normal limits Cardiovascular: Regular rate and rhythm, 3/6 murmur (reports chronic) Respiratory: Coarse hacking paroxysmal right lower lobe crackles Results - COVID tests: Negative (conducted twice in the past week); I also. Office obtained today not resulted as of the close of this note FINDINGS: PA and lateral views of the chest are submitted. There is a right-sided port with its tip at the cavoatrial junction. There is patchy airspace opacity posteriorly on the lateral view, consistent with lower lobe pneumonia. This is not well visualized on the frontal view, but may be in the right lower lobe. There is no pleural effusion, pneumothorax, or pulmonary vascular congestion. The heart is normal in size. The bones are intact. XR/XR chest 2V IMPRESSION: Lower lobe pneumonia, best seen on the lateral view, and likely in the right lower lobe. Follow-up is recommended to document resolution. Discussion Notes I discussed with the patient the likelihood of a respiratory infection, potentially pneumonia, given the persistence of the cough and auscultation findings. A chest X-ray is recommended to obtain clearer diagnostic insights and to rule out pneumonia. The chest X-ray will be carried out in [facility] due to logistical advantages, including rapid result delivery. Additionally, I explained that a multiplex swab would be performed for concurrent evaluation of flu and RSV, given the seasonality. We deliberated on the limitations of his current medications in managing his symptoms and the necessity of further intervention or diagnostic follow-up. Usage of the patient portal for timely updates on diagnostic findings was emphasized. The importance of a follow-up with his joint finisher, Dr. Davila, is highlighted, considering the patient's comorbid conditions. Patient Instructions - Proceed for X-ray as soon as possible. - Follow instructions for COVID, influenza, and RSV testing. - Monitor the patient portal for updates on test results. - Ensure follow-up with Dr. Atwood as scheduled. - Seek immediate care if symptoms worsen or any new concerning symptoms develop. Plan Given the patient's history of hematological malignancies?lymphoma and leukemia?and the current presentation of a persistent cough with significant findings in the right lower lobe on auscultation, a differential diagnosis includes pneumonia or another form of lower respiratory tract infection such as bronchitis. A chest X-ray is warranted to elucidate the underlying cause and evaluate for possible pneumonia. I recommend a multiplex nasal swab to assess for co-infections like influenza or RSV, common in the current season. The patient's prednisone regimen is noted, with tapering nearly complete. Despite recent negative COVID tests at home and the administration of the flu vaccine, it remains essential to maintain a high level of diagnostic vigilance given his immunocompromised state secondary to malignancies and steroid treatment. Recommendations for further management and potential therapeutic adjustments will follow pending diagnostic test results. Close monitoring of portal updates is advised for any subsequent action plans Patient was informed and verbally consented to the use of an ambient scribe for clinic note documentation during this visit. Message sent via the portal with the positive right lower lobe pneumonia results. Azithromycin this prescribed. He continues to use Mucinex for the cough as this was helpful. Follow up with primary care scheduled for next week [facility] Medical History (Updated 09/23/24 @ 17:39 by Andie Vargas, CVOR NURSE-) Broken wrist High cholesterol History of broken leg Hypertension Surgical History (Updated 11/02/23 @ 10:18 by Beronica Matson [facility]) History of knee surgery History of laminectomy History of rotator cuff surgery Social History (Updated 05/04/24 @ 08:51 by Reina Ulloa [facility]) Household Members: Children Both parents involved: No Caregiver staying overnight: No Housing: House Are you a primary ambulatory care to a significant other at home: No Do you presently have visiting nurse or other home services: No 75 years or older and lives alone: No Alcohol intake: current Alcohol intake frequency: a few times a month Alcohol type: beer Patient Tobacco Use Status: Former Tobacco user Cigarette Packs Per Day: 1 Years Smoked: 20 e-Cigarette/Vaping Use: Never Used service: Yes ([employer] ) Current occupational status: retired Current occupational exposures/hazards: No Cognitive needs: No Hearing needs: Yes (wears hearing aids) Vision needs: No Physical Exam Vital Signs: Last Vital Signs Temp 97.9 F 09/23/24 13:33 Pulse 104 H 09/23/24 13:33 Pulse Ox 95 09/23/24 13:33 Oxygen Delivery Method Room Air 09/23/24 13:33 Assessment & Plan Assessment & Plan (1) RLL pneumonia: Code(s): J18.9 - Pneumonia, unspecified organism Qualifiers: Pneumonia type: due to unspecified organism Qualified Code(s): J18.9 - Pneumonia, unspecified organism (2) Cough: Code(s): R05.9 - Cough, unspecified Qualifiers: Cough type: acute Qualified Code(s): R05.1 - Acute cough Plan . Orders: Orders XR chest 2V Today R05.9 - Cough, unspecified, R09.89 - Other specified symptoms and signs involving the circulatory and respiratory systems, R68.89 - Other general symptoms and signs SARS-CoV2/FLU/RSV Today R05.9 - Cough, unspecified, R09.89 - Other specified symptoms and signs involving the circulatory and respiratory systems, R68.89 - Other general symptoms and signs Medications: New azithromycin For 250 mg dose pack: take 500 mg today (day 1), then 250 mg for 4 days (days 2-5) PO 5 days 6 tabs 0RF Coding Level of Care Code Est Pt Level 4 (70501) Diagnoses Pneumonia of right lower lobe due to infectious organism J18.9 Pneumonia type: due to unspecified organism Acute cough R05.1 Cough type: acute
== END | disposition home or self-care (01) ==

== ENCOUNTER → 2024-09-23 14:06 | Outpatient (BNV) | payer MEDICARE, SELFPAY | PROVIDERS: PCP Family Medicine; Visit Provider Radiology Diagnostic Radiology | DX: R05.9 Cough, unspecified (principal) | CPT/HCPCS: 71046 ==

== ENCOUNTER 2024-09-28 07:30 | Outpatient (REF) | payer MEDICARE, SELFPAY ==
--- OUTSIDE RECORDS SUMMARY | 2024-09-28 07:31 | XMS_ITS | Clinical Summary ---
Author Organization [facility] Address [address] [place] [address] Care Team Providers Care Assembler Dc Field Ring Name Role Phone Feroz Lima MD Primary Care Provider [phone] Allergies No known active allergies Medications Medication [...] age to complete this topic Care Teams Assembler Dc Field Ring Relationship Specialty Start Date End Date Feroz Lima MD [address] [place] [id number] PCP - General Internal Medicine 02/26/18
[2024-09-28 11:23] LABS: Appearance Urine Turbid; Color Urine Dark Yellow; Glucose Urine UA Negative (Negative); Leukocyte Esterase Urine Negative (Negative); Nitrite Urine Negative (Negative); Specific Gravity - Urine >= 1.030 (1.005-1.025); UMIC TRIGGER UA YES; Urine Blood Negative (Negative); Urine Ketones Trace mg/dL (Negative); Urine Protein 30 (1+) mg/dL (Neg-Trace)
[2024-09-28 11:28] LABS: Bacteria Urine None Seen (None Seen); Hyaline Casts Urine 0-2 /LPF (0-2); RBC Urine 0-2 /HPF (0-2); Squamous Epithelial Cell Urine 0-2 /HPF (0-2); WBC Urine 0-5 /HPF (0-5)
[2024-09-28 11:33] LABS: Basophils Absolute Auto 0.1 X10*3/uL (0.0-0.2); Basophils Percent Auto 0.5 % (0-2); Eosinophils Absolute Auto 0.2 X10*3/uL (0.0-0.4); Hematocrit 36.3 % (42.0-52.0); Hemoglobin 12.4 g/dl (14.0-18.0); Imm Gran Abs Auto 0.04 X10*3/uL (0.00-0.03); Imm Gran Pct Auto 0.4 % (0.0-0.4); Lymphocytes Absolute Auto 5.3 X10*3/uL (1.2-4.9); Lymphocytes Percent Auto 49.3 % (20-40); MANUAL DIFF FLAG SCAN; Mean Corpuscular HGB Conc 34.2 g/dl (31.0-36.0); Mean Corpuscular Hemoglobin 32.3 pg (27.0-33.0); Mean Corpuscular Volume 94.5 fL (80.0-98.0); Neutrophils Absolute Auto 4.1 x10*3/uL (2.0-8.3); Neutrophils Percent Auto 38.8 % (45-73); Platelet Count 271 X10*3/uL (160-400); Red Blood Count 3.84 X10*6/uL (4.60-5.80); SCAN SMEAR FLAG 1; White Blood Count 10.7 X10*3/uL (4.8-10.8)
[2024-09-28 11:57] LABS: SLIDE REVIEW VERIFIED
[2024-09-28 11:58] LABS: Alanine Aminotransferase 31 U/L (0-40); Albumin Level 3.7 g/dL (3.5-5.0); Alkaline Phosphatase 92 U/L (39-117); Anion Gap 11 (12-20); Aspartate Amino Transferase 43 U/L (5-37); Bilirubin Total 0.6 mg/dL (0.0-1.0); Blood Urea Nitrogen 25 mg/dL (9-16); Calcium 8.9 mg/dL (8.4-10.2); Carbon Dioxide 26 mmol/L (22-29); Chloride 110 mmol/L (96-108); Cholesterol 155 mg/dL (<200); Estimated Average Glucose 103 mg/dL; Estimated Glomerular Filt Rate > 60; Glucose Fasting 108 mg/dL (60-99); Glucose Random 108 mg/dL (60-115); HDL Cholesterol 36 mg/dL (>40); Hemoglobin A1C 105.8458 umol/L; Hemoglobin A1c % 5.2 % (<6.0); LDL Cholesterol Calculated 101 mg/dL (<100); Potassium 3.6 mmol/L (3.3-5.1); Sodium 143 mmol/L (135-145); Total Hemoglobin (HGBA1C) 3219.0546 umol/L; Total Protein 6.9 g/dL (6.5-8.0); Triglycerides 93 mg/dL (<150)
== END 2024-09-28 07:31 | disposition home or self-care (01) ==
LOC: HO.WFDLDS 07:30
PROVIDERS: Visit Provider Family Medicine
DX: I10 Essential (primary) hypertension (principal); D64.9 Anemia, unspecified; R74.8 Abnormal levels of other serum enzymes; R73.01 Impaired fasting glucose; I51.89 Other ill-defined heart diseases; J18.9 Pneumonia, unspecified organism; R05.1 Acute cough; C91.10 Chronic lymphocytic leukemia of B-cell type not having achieved remission; E78.00 Pure hypercholesterolemia, unspecified
CPT/HCPCS: 36415; 80053; 80061; 81001; 83036; 85025; 99212

== ENCOUNTER 2024-09-28 14:05 | Outpatient (AMB) | payer MEDICARE, SELFPAY ==
--- NOTE | 2024-09-28 14:16 | MHC.PC.OV ---
Vital Signs 09/28/24 14:21 Height 5 ft 11 in Weight 217 lb 2 oz BMI 30.3 BP 120/54 L Blood Pressure Location Lt brachial Position Sitting Respiration 14 Pulse 84 Pulse Source Pulse Oximeter Temp 98.1 F Temp Source Oral Pulse Oximetry (%) 97 Oxygen Delivery Method Room Air Intake Visit Reasons: f/u hypertension, chronic conditions Intake Note: follow up for htn Allergies No Known Allergies Allergy (Verified 09/28/24 14:18) Tobacco use date assessed: 05/04/24 Dental Screening Dental Screen Date: 05/04/24 HPI f/u hypertension, chronic conditions HPI Details Patient?is?scheduled?follow-up?hypertension?and?chronic?conditions However?patient?needs?FMLA?paperwork?for?his??to?care?for?him. Patient?had?recent?right?lower?lobe?pneumonia?diagnosed?on?September?, secondary?to?influenza. Notes symptoms have been improving but notes ongoing cough. Reports ongoing fatigue. They note benzonatate does not seem to be helping. Blood?pressure?today?120/54 He?is?taking?amlodipine?as?prescribed Lab work drawn this morning shows normal white count. Elevated fasting blood sugars and A1c is within normal range; 5.2%. Mildly elevated liver enzymes as seen previously LDL cholesterol slightly elevated and HDL slightly low. HPI Comments History of Present Illness Details Documentation assistance for Boubacar Gonzalez MD, was provided by Sincere Castanon,? Learning And Development Director on 09/28/2024 at 3:03 PM EST. I, Dr. Gonzalez, have read, observed, and verified documentation. ?? PFSH Medical History (Updated 09/23/24 @ 17:39 by Anide Vargas, SHOE STAMPER-) Broken wrist History of broken leg High cholesterol Hypertension Surgical History (Updated 11/02/23 @ 10:18 by Beronica Matson [facility]) History of knee surgery History of rotator cuff surgery History of laminectomy Social History (Updated 05/04/24 @ 08:51 by Reina Ulloa [facility]) Household Members: Children Both parents involved: No Caregiver staying overnight: No Housing: House Are you a primary manager care management to a significant other at home: No Do you presently have visiting nurse or other home services: No 75 years or older and lives alone: No Alcohol intake: current Alcohol intake frequency: a few times a month Alcohol type: beer Patient Tobacco Use Status: Former Tobacco user Cigarette Packs Per Day: 1 Years Smoked: 20 e-Cigarette/Vaping Use: Never Used service: Yes ([employer] ) Current occupational status: retired Current occupational exposures/hazards: No Cognitive needs: No Hearing needs: Yes (wears hearing aids) Vision needs: No Questionnaire Thrive Questionnaire Date Thrive assessed: 06/17/24 I am a: Patient What is your living situation today?: I have a steady place to live Within the past 12 months, did the food you bought not last and you didn't have the money to get more?: Never true Within the past 12 months, did you worry whether your food would run out before you got money to buy more?: Never true Do you have trouble paying for medicines?: No Do you have trouble getting transportation to medical appointments?: No Do you have trouble paying your heating and electricity bill?: No Do you have trouble taking care of your child, family member or friend?: No Do you have trouble with day-to-day activities such as bathing, preparing meals, shopping, managing finances, etc.?: No Are you currently unemployed and looking for a job?: No Are you interested in more education?: No Please select the resources that you would like help with: None Currently or been in a relationship where the following occur: No concerns reported THRIVE Score: 0 RAN-7 AMB Questionnaire RAN-7 Date RAN - 7 assessed: 05/04/24 Source: Developed by Drs. Ramon Valdovinos, Violeta Diaz, Dhaval Torrez and colleagues, with an educational rhina from [employer]. Review of Systems Const Denies chills, Reports fatigue, Denies fever(s), Denies headache(s) and Denies weakness ENT Denies dizziness and Denies headache(s) Card Denies dyspnea Resp Reports cough, Denies dyspnea, Denies wheezing and Denies other (shortness of breath) Musc Denies numbness and Denies tingling Neuro Denies dizziness, Denies headache(s), Denies numbness, Denies tingling and Denies weakness Psych Denies anxiety and Denies depression Endo Reports fatigue Aller/Immun Denies wheezing Physical exam (Primary Care) Vital Signs: Last Vital Signs Temp 98.1 F 09/28/24 14:21 Pulse 84 09/28/24 14:21 Resp 14 09/28/24 14:21 BP 120/54 L 09/28/24 14:21 Pulse Ox 97 09/28/24 14:21 Oxygen Delivery Method Room Air 09/28/24 14:21 BMI result Body Mass Index 30.3 Tobacco/Smoking Status: Tobacco use Status Tobacco use date assessed 05/04/24 09/28/24 14:17 Patient Tobacco Use Status Former Tobacco user 09/28/24 14:17 e-Cigarette/Vaping Use Never Used 09/28/24 14:17 Thrive Assessment: Date of Thrive Assessment Date Thrive assessed 06/17/24 09/28/24 14:17 Currently or been in a relationship where the following occur: No concerns reported Const General: well developed; No acute distress Nutritional Appearance: well nourished Orientation/consciousness: patient oriented x3 HENMT Head: Yes normocephalic and Yes atraumatic Eyes General: appearance normal, both eyes and all related structures Pupils: Equal, round and reactive pupils present EOM: EOMs intact bilaterally Resp Other: Crackles at R lung Effort & Inspection: normal respiratory effort Auscultation: not clear to auscultation bilaterally Cardio Rate: regular rate Rhythm: regular rhythm Heart sounds: S1 normal heart sound present, S2 normal heart sound present, no gallops, no murmurs and no rubs Neuro General: patient oriented x3 and gait normal Cranial nerves: Yes Equal, round and reactive pupils present Psych Affect: normal affect Coding Level of Care Code Est Pt Level 4 (74698) Diagnoses Pneumonia of right lower lobe due to infectious organism J18.9 Pneumonia type: due to unspecified organism Acute cough R05.1 Cough type: acute Hypertension I10 CLL (chronic lymphocytic leukemia) C91.10 Elevated liver enzymes R74.8 High cholesterol E78.00 Assessment & Plan Assessment & Plan (1) RLL pneumonia: Code(s): J18.9 - Pneumonia, unspecified organism Category: Medical Qualifiers: Pneumonia type: due to unspecified organism Qualified Code(s): J18.9 - Pneumonia, unspecified organism Plan: Still?has?some?crackles?and?faint?wheezes?in?right?lung Still?has?cough?and?fatigue.??No?fevers. Will?recheck?chest?x-ray Given?patient?has?diagnosis?of?CLL,?not?in?remission,?will?extend?antibiotic?treatment?with?Z-Víctor. Can?continue?inhaler?and?cough?medicine?intermittently?to?help?with?sleep. Hydrate?well Get?plenty?of?rest Humidified?air (2) Cough: Code(s): R05.9 - Cough, unspecified Category: Medical Qualifiers: Cough type: acute Qualified Code(s): R05.1 - Acute cough Plan: As?above (3) Hypertension: Code(s): I10 - Essential (primary) hypertension Category: Medical Plan: Blood?pressure?is?controlled No?medication?changes?made?today We?will?follow-up?again?at?next?visit (4) CLL (chronic lymphocytic leukemia): Code(s): C91.10 - Chronic lymphocytic leukemia of B-cell type not having achieved remission Category: Medical Plan: Patient has?CLL?not?considered?in?remission?at?this?time. He?does?have?a?follow-up?appointment?with?his?oncologist Filled?out?FMLA?paperwork?so?that?his?family?member?can?take?time?off?intermittently?to?provide?care during?any?flare?ups?or?infections/illnesses. Recommended?up?to?2-3?times?per?month?at?up?to?1-5?days?per?episode (5) Elevated liver enzymes: Code(s): R74.8 - Abnormal levels of other serum enzymes Category: Medical Plan: Will?continue?to?monitor?and?discuss?at?next?visit (6) High cholesterol: Code(s): E78.00 - Pure hypercholesterolemia, unspecified Category: Medical Plan: Continue?atorvastatin Orders: Orders XR chest 2V Today J18.9 - Pneumonia, unspecified organism Medications: Refilled azithromycin For 250 mg dose pack: take 500 mg today (day 1), then 250 mg for 4 days (days 2-5) PO 5 days 6 tabs 0RF J18.9 - Pneumonia, unspecified organism
[2024-09-28 14:21] VITALS: BP 120/54; PULSE 84; RESP 14; TEMP 36.7; O2SAT 97; BMI 30.3
--- OUTSIDE RECORDS SUMMARY | 2024-09-28 15:30 | XMS_ITS | Clinical Summary ---
Author Organization [facility] Address [address] [place] [address] Care Team Providers Care Completion Manager Name Role Phone Feroz Lima MD Primary Care Provider Allergies No known active allergies Medications Medication [...] age to complete this topic Care Teams Completion Manager Relationship Specialty Start Date End Date Feroz Lima MD [address] [place] [id number] PCP - General Internal Medicine 02/26/18
== END 2024-09-28 15:53 | disposition home or self-care (01) ==
PROVIDERS: PCP Family Medicine; Visit Provider Family Medicine
DX: J18.9 Pneumonia, unspecified organism (principal); R05.1 Acute cough; I10 Essential (primary) hypertension; C91.10 Chronic lymphocytic leukemia of B-cell type not having achieved remission; R74.8 Abnormal levels of other serum enzymes; E78.00 Pure hypercholesterolemia, unspecified

== ENCOUNTER 2024-09-29 09:44 | Outpatient (REF) | payer MEDICARE, SELFPAY ==
--- NOTE | ~2024-09-29 | XR_ITS ---
CLINICAL HISTORY: J18.9 - Pneumonia, unspecified organism 2 view chest x-ray Comparison: 09/23/2024 Findings: The lungs are clear. Heart size is normal. No acute fracture. IMPRESSION: 1. No acute findings. This document has been electronically signed by: Kenneth Sifuentes MD on 09/30/2024 05:11:49
--- OUTSIDE RECORDS SUMMARY | 2024-09-29 10:15 | XMS_ITS | Clinical Summary ---
Author Organization [facility] Address [address] [place] [address] Care Team Providers Care Hook And Eye Attacher Name Role Phone Feroz Lima MD Primary Care Provider [phone] Allergies No known active allergies Medications Medication [...] age to complete this topic Care Teams Hook And Eye Attacher Relationship Specialty Start Date End Date Feroz Lima MD [address] [place] [id number] PCP - General Internal Medicine 02/26/18
== END 2024-09-29 09:45 | disposition home or self-care (01) ==
LOC: HO.HMGCLDS 09:44
PROVIDERS: PCP Family Medicine; Visit Provider Family Medicine
DX: J18.9 Pneumonia, unspecified organism (principal)
CPT/HCPCS: 71046

== ENCOUNTER → 2024-09-29 09:47 | Outpatient (BNV) | payer MEDICARE, SELFPAY | PROVIDERS: PCP Family Medicine; Visit Provider Specialist | DX: J18.9 Pneumonia, unspecified organism (principal) | CPT/HCPCS: 71046 ==

== ENCOUNTER 2024-11-01 15:22 | Outpatient (REF) | payer MEDICARE, SELFPAY ==
[2024-11-02 09:14] LABS: Basophils Absolute Auto 0.1 X10*3/uL (0.0-0.2); Basophils Percent Auto 0.7 % (0-2); Eosinophils Absolute Auto 0.2 X10*3/uL (0.0-0.4); Eosinophils Percent Auto 1.4 % (0-4); Hemoglobin 13.1 g/dl (14.0-18.0); Imm Gran Abs Auto 0.04 X10*3/uL (0.00-0.03); Imm Gran Pct Auto 0.4 % (0.0-0.4); Lymphocytes Absolute Auto 6.2 X10*3/uL (1.2-4.9); Lymphocytes Percent Auto 58.7 % (20-40); MANUAL DIFF FLAG SCAN; Mean Corpuscular HGB Conc 35.4 g/dl (31.0-36.0); Mean Corpuscular Hemoglobin 31.7 pg (27.0-33.0); Mean Corpuscular Volume 89.6 fL (80.0-98.0); Mean Platelet Volume 9.6 fL (9.4-12.4); Monocytes Percent Auto 9.3 % (2-11); Neutrophils Absolute Auto 3.1 x10*3/uL (2.0-8.3); Neutrophils Percent Auto 29.5 % (45-73); Platelet Count 217 X10*3/uL (160-400); Red Blood Count 4.13 X10*6/uL (4.60-5.80); Red Cell Distribution Width 12.8 % (11.0-16.0); SCAN SMEAR FLAG 1; White Blood Count 10.6 X10*3/uL (4.8-10.8)
[2024-11-02 09:22] LABS: Appearance Urine Clear; Color Urine Dark Yellow; Glucose Urine UA Negative (Negative); Leukocyte Esterase Urine Negative (Negative); Nitrite Urine Negative (Negative); PH 5.5 (5.0-9.0); Urine Blood Negative (Negative); Urine Ketones Trace mg/dL (Negative); Urine Protein Negative (Neg-Trace)
[2024-11-02 09:35] LABS: Alanine Aminotransferase 26 U/L (0-40); Albumin Level 4.3 g/dL (3.5-5.0); Alkaline Phosphatase 103 U/L (39-117); Anion Gap 12 (12-20); Aspartate Amino Transferase 36 U/L (5-37); Bilirubin Total 0.8 mg/dL (0.0-1.0); Blood Urea Nitrogen 23 mg/dL (9-16); Calcium 9.3 mg/dL (8.4-10.2); Carbon Dioxide 26 mmol/L (22-29); Chloride 109 mmol/L (96-108); Estimated Glomerular Filt Rate > 60; Glucose Random 94 mg/dL (60-115); Potassium 4.5 mmol/L (3.3-5.1); Sodium 142 mmol/L (135-145); Total Protein 7.2 g/dL (6.5-8.0)
[2024-11-02 10:05] LABS: SLIDE REVIEW VERIFIED
== END 2024-11-01 15:23 | disposition home or self-care (01) ==
LOC: HO.WFDLDS 15:22
PROVIDERS: Visit Provider Family Medicine
DX: Z00.00 Encounter for general adult medical examination without abnormal findings (principal); D64.9 Anemia, unspecified; R35.0 Frequency of micturition; R39.11 Hesitancy of micturition; N17.9 Acute kidney failure, unspecified
CPT/HCPCS: 36415; 80053; 81003; 85025

== ENCOUNTER 2024-11-02 08:32 | Outpatient (AMB) | payer MEDICARE, SELFPAY ==
--- NOTE | 2024-11-02 08:36 | A.OFFPC_ITS ---
Vital Signs 11/02/24 08:42 Height 5 ft 11 in Weight 219 lb 4 oz BMI 30.6 BP 130/60 Blood Pressure Location Lt brachial Position Sitting Respiration 14 Pulse 87 Pulse Source Pulse Oximeter Temp 97.8 F Temp Source Oral Pulse Oximetry (%) 98 Oxygen Delivery Method Room Air Intake Visit Reasons: f/u pneumonia, chronic conditions Intake Note: patient is scheduled for pneumonia follow up and labs Band Salvager Required: No Allergies No Known Allergies Allergy (Verified 11/02/24 08:38) Medication List - Last Reconciled 11/02/24 by Boubacar Gonzalez MD amlodipine 5 mg PO DAILY 90 days atorvastatin 40 mg PO DAILY multivitamin 1 tab PO DAILY vit C-E-zinc ws-dtqk-dfa-zeax 250 mg-200 unit -12.5 mg-1 mg (ICaps AREDS2) caps PO Tobacco use date assessed: 05/04/24 Dental Screening Dental Screen Date: 05/04/24 HPI f/u pneumonia, chronic conditions HPI Details Patient?returns?to?follow-up?recent?pneumonia?and?also?hypertension. Patient?had?recent?pneumonia?and?was?given?a?Z- Víctor?which?I?extended?due?to?his?history?of?CLL?and?some?ongoing?symptoms. Patient?finished?antibiotics.??Chest?x- ray?is?clear?and?he?is?breathing?easily?today. Blood?pressure?is?130/60 He?is?taking?amlodipine?without?any?problems Liver?enzymes?have?been?mildly?elevated?at?last?check.??Now?within?range? from?outside?lab?results No?new?complaints.??Patient?feels?well [facility] Medical History (Updated 09/23/24 @ 17:39 by Andie Vargas, JUAN-SILAS) Broken wrist History of broken leg High cholesterol Hypertension Surgical History (Updated 11/02/23 @ 10:18 by Beronica Matson [facility]) History of knee surgery History of rotator cuff surgery History of laminectomy Social History (Updated 05/04/24 @ 08:51 by Reina Ulloa [facility]) Household Members: Children Both parents involved: No Caregiver staying overnight: No Housing: House Are you a primary intensive care medicine specialist to a significant other at home: No Do you presently have visiting nurse or other home services: No 75 years or older and lives alone: No Alcohol intake: current Alcohol intake frequency: a few times a month Alcohol type: beer Patient Tobacco Use Status: Former Tobacco user Cigarette Packs Per Day: 1 Years Smoked: 20 e-Cigarette/Vaping Use: Never Used service: Yes ([employer] ) Current occupational status: retired Current occupational exposures/hazards: No Cognitive needs: No Hearing needs: Yes (wears hearing aids) Vision needs: No Questionnaire PHQ-9 Over the last 2 weeks, how often have you been bothered by any of the following problems? 1. Little interest or pleasure in doing things: not at all 2. Feeling down, depressed, or hopeless: not at all 3. Trouble falling or staying asleep, or sleeping too much: not at all 4. Feeling tired or having little energy: not at all 5. Poor appetite or overeating: not at all 6. Feeling bad about yourself - or that you are a failure or have let yourself or your family down: not at all 7. Trouble concentrating on things, such as reading the newspaper or watching television: not at all 8. Moving or speaking so slowly that other people could have noticed. Or the opposite - being so fidgety or restless that you have been moving around a lot more than usual: not at all 9. Thoughts that you would be better off or of hurting yourself in some way: not at all Total score: 0 Source: Developed by Drs. Ramon Valdovinos, Violeta Diaz, Dhaval Torrez and colleagues, with an educational rhina from [employer]. Thrive Questionnaire Date Thrive assessed: 09/16/24 I am a: Patient What is your living situation today?: I have a steady place to live Within the past 12 months, did the food you bought not last and you didn't have the money to get more?: Never true Within the past 12 months, did you worry whether your food would run out before you got money to buy more?: Never true Do you have trouble paying for medicines?: No Do you have trouble getting transportation to medical appointments?: No Do you have trouble paying your heating and electricity bill?: No Do you have trouble taking care of your child, family member or friend?: No Do you have trouble with day-to-day activities such as bathing, preparing meals, shopping, managing finances, etc.?: No Are you currently unemployed and looking for a job?: No Are you interested in more education?: No Please select the resources that you would like help with: None Currently or been in a relationship where the following occur: No concerns reported THRIVE Score: 0 RAN-7 AMB Questionnaire RAN-7 Date RAN - 7 assessed: 05/04/24 Source: Developed by Drs. Ramon Valdovinos, Violeta Diaz, Dhaval Torrez and colleagues, with an educational rhina from [employer]. Review of Systems Const Denies chills, Denies fatigue, Denies fever(s), Denies headache(s) and Denies weakness ENT Denies dizziness and Denies headache(s) Card Denies chest pain, Denies lightheadedness, Denies dyspnea and Denies other (Palpitations) Resp Denies cough, Denies dyspnea, Denies wheezing and Denies other ( shortness of breath) Musc Denies numbness and Denies tingling Neuro Denies dizziness, Denies headache(s), Denies numbness, Denies tingling, Denies paresthesias and Denies weakness Psych Denies anxiety and Denies depression Endo Denies fatigue Aller/Immun Denies wheezing Physical exam (Primary Care) Vital Signs: Last Vital Signs Temp 97.8 F 11/02/24 08:42 Pulse 87 11/02/24 08:42 Resp 14 11/02/24 08:42 BP 130/60 11/02/24 08:42 Pulse Ox 98 11/02/24 08:42 Oxygen Delivery Method Room Air 11/02/24 08:42 BMI result Body Mass Index 30.6 Tobacco/Smoking Status: Tobacco use Status Tobacco use date assessed 05/04/24 11/02/24 08:46 Patient Tobacco Use Status Former Tobacco user 11/02/24 08:46 e-Cigarette/Vaping Use Never Used 11/02/24 08:46 PHQ-9: PHQ-9 Score PHQ-9: Total score 0 11/02/24 08:46 Thrive Assessment: Date of Thrive Assessment Date Thrive assessed 09/16/24 11/02/24 08:46 Currently or been in a relationship where the following occur: No concerns reported Const General: no acute distress and well developed Nutritional Appearance: well nourished Orientation/consciousness: patient oriented x3 HENMT Head: Yes normocephalic and Yes atraumatic Eyes General: appearance normal, both eyes and all related structures Pupils: Equal, round and reactive pupils present EOM: EOMs intact bilaterally Resp Effort & Inspection: normal respiratory effort Auscultation: clear to auscultation bilaterally Cardio Rate: regular rate Rhythm: regular rhythm Heart sounds: S1 normal heart sound present, S2 normal heart sound present, no gallops, no murmurs and no rubs Neuro General: patient oriented x3 and gait normal Cranial nerves: Yes Equal, round and reactive pupils present Psych Affect: normal affect Coding Level of Care Code Est Pt Level 4 (77240) Diagnoses Hypertension I10 Aortic stenosis I35.0 Elevated liver enzymes R74.8 Pneumonia of right lower lobe due to infectious organism J18.9 Pneumonia type: due to unspecified organism CLL (chronic lymphocytic leukemia) C91.10 Urinary hesitancy R39.11 Assessment & Plan Assessment & Plan (1) Hypertension: Code(s): I10 - Essential (primary) hypertension Category: Medical Plan: Blood?pressure?is?controlled?and?at?goal?of?less?than?130/80. He?is?on?amlodipine Continue?current?medication (2) Aortic stenosis: Code(s): I35.0 - Nonrheumatic aortic (valve) stenosis Category: Medical Plan: Stable Follow-up?with?Cardiology?as?recommended (3) Elevated liver enzymes: Code(s): R74.8 - Abnormal levels of other serum enzymes Category: Medical Plan: Patient?had?mildly?elevated?AST?now?within?normal?range;?21 Encouraged?good?hydration (4) RLL pneumonia: Code(s): J18.9 - Pneumonia, unspecified organism Category: Medical Qualifiers: Pneumonia type: due to unspecified organism Qualified Code(s): J18.9 - Pneumonia, unspecified organism Plan: Recent?right?lower?lobe?pneumonia. Had?ordered?chest?x-ray?which?is?clear.??Patient?now?breathing Easily.?? Resolved (5) CLL (chronic lymphocytic leukemia): Code(s): C91.10 - Chronic lymphocytic leukemia of B-cell type not having achieved remission Category: Medical Plan: Followed?by?Hematology- Oncology?and?had?recent?visit?about?2?days?ago.??I?do?not?have?the?note?yet. Patient?says?oncology?is?pleased?with?his?progress Awaiting?specialists?note. (6) Urinary hesitancy: Code(s): R39.11 - Hesitancy of micturition Category: Medical Plan: Now?followed?by?Urology Still?has?symptoms Advised?he?hydrate?well?but?taper?off?after?dinner Medications: New lisinopril 40 mg PO DAILY 90 days 90 tabs 3RF Changed From amlodipine 5 mg PO DAILY 90 days 90 tabs 3RF To amlodipine 10 mg PO DAILY 90 days 90 tabs 3RF
[2024-11-02 08:42] VITALS: BP 130/60; PULSE 87; RESP 14; TEMP 36.6; O2SAT 98; BMI 30.6
--- OUTSIDE RECORDS SUMMARY | 2024-11-02 09:19 | XMS_ITS | Clinical Summary ---
Author Organization [facility] Address [address] [place] [address] Care Team Providers Care Laundry Machine Operator Name Role Phone Feroz Lima MD Primary Care Provider [phone] Allergies No known active allergies Medications Medication [...] age to complete this topic Care Teams Laundry Machine Operator Relationship Specialty Start Date End Date Feroz Lima MD [address] [place] [id number] PCP - General Internal Medicine 02/26/18
== END 2024-11-02 09:03 | disposition home or self-care (01) ==
LOC: HO.HMCFM 08:32
PROVIDERS: PCP Family Medicine; Visit Provider Family Medicine
DX: I10 Essential (primary) hypertension (principal); C91.10 Chronic lymphocytic leukemia of B-cell type not having achieved remission; I35.0 Nonrheumatic aortic (valve) stenosis; R74.8 Abnormal levels of other serum enzymes; J18.9 Pneumonia, unspecified organism; R39.11 Hesitancy of micturition

== ENCOUNTER → 2024-11-02 08:32 | Outpatient (BNVA) | payer MEDICARE, SELFPAY | PROVIDERS: PCP Family Medicine; Visit Provider Family Medicine | DX: I10 Essential (primary) hypertension (principal); I35.0 Nonrheumatic aortic (valve) stenosis; R74.8 Abnormal levels of other serum enzymes; C91.10 Chronic lymphocytic leukemia of B-cell type not having achieved remission; R39.11 Hesitancy of micturition; J18.9 Pneumonia, unspecified organism | CPT/HCPCS: 99212 ==

== ENCOUNTER 2024-11-10 07:47 | Outpatient (AMB) | payer MEDICARE, SELFPAY ==
--- OUTSIDE RECORDS SUMMARY | 2024-11-10 07:49 | XMS_ITS | Clinical Summary ---
Author Organization [facility] Address [address] [place] [address] Care Team Providers Care Oracle Database Consultant Name Role Phone Feroz Lima MD Primary Care Provider [phone] Allergies No known active allergies Medications Medication [...] age to complete this topic Care Teams Oracle Database Consultant Relationship Specialty Start Date End Date Feroz Lima MD [address] [place] [id number] PCP - General Internal Medicine 02/26/18
--- NOTE | 2024-11-10 08:10 | A.OFFVIS_ITS ---
Intake Visit Reasons: urinary hesitancy and frequency Intake Note: New Patient presents for initial visit for urinary frequency Urology Medications: none Blood Thinner: none PVR: 56ml's Ged Preparation Teacher Required: No Accompanied by: Unknown Allergies No Known Allergies Allergy (Verified 11/10/24 08:45) Medication List - Last Reconciled 11/10/24 by JUAN Anne-SILAS amlodipine 10 mg PO DAILY 90 days atorvastatin 40 mg PO DAILY lisinopril 40 mg PO DAILY 90 days multivitamin 1 tab PO DAILY vit C-E-zinc re-bplk-dzl-zeax 250 mg-200 unit -12.5 mg-1 mg (ICaps AREDS2) caps PO HPI Comments Details: Kenneth is a pleasant 74-year-old male patient of Dr. Gonzalez who was accompanied by his daughter at today's office visit. He has a past medical history of hypercholesteremia and hypertension. He presents to the office today as a new patient for a longstanding history of urinary issues he has been experiencing. He reports noting for many years having episodes of urinary urgency and frequency as well as nocturia up to 2 times per night. He reports having followed up with his PCP at which time recommendations were made for urology referral for further assessment evaluation. In office urinalysis results reviewed with the patient today. PVR 56 mL. He reports having previously been on Flomax when he was hospitalized however felt this worsens symptoms. He otherwise denies hematuria, dysuria, foul smelling urine, changes to urinary stream, flank pain, fever, and or chills. We discussed at length potential causes of lower urinary tract symptoms patient was experiencing as we ll as further workup. We discussed bladder triggers and irritants as well as healthy bathroom behaviors. PSA 11/07 1.0. He otherwise offers no other issues or concerns at this time. Plan The patient will undergo further evaluation to understand the urinary symptoms better. Blood work for prostate assessment and imaging studies of his urogenital tract have been scheduled. Based on today's findings, he does not find Flomax beneficial; thus, no new medications will be started until all diagnostic results are obtained. There will be continued lifestyle management, focusing on limiting fluid intake in the late evening and avoiding dietary triggers known to exacerbate symptoms. Patient was informed and verbally consented to the use of an ambient scribe for clinic note documentation during this visit. Discussion Notes During our discussion, I explained to the patient that his current urinary symptoms, notably frequency and urgency, with nighttime rises (nocturia), are typical as the prostate enlarges with age. We discussed the adverse effects he experienced with Flomax, leading to the decision not to resume this medication without further evaluation. I emphasized the impact of dietary factors, including caffeine and chocolate, on urinary symptoms. After consulting on management strategies, the patient agreed to undergo further blood and imaging tests and to revisit medication options after confirming diagnostic outcomes. I clarified that the goal is to minimize nocturia to enhance sleep quality, but it is natural to expect some degree of nighttime voiding with aging. [facility] Medical History Broken wrist History of broken leg High cholesterol Hypertension Surgical History History of knee surgery History of rotator cuff surgery History of laminectomy Social History Household Members: Children Both parents involved: No Caregiver staying overnight: No Housing: House Are you a primary resident care technician to a significant other at home: No Do you presently have visiting nurse or other home services: No 75 years or older and lives alone: No Alcohol intake: current Alcohol intake frequency: a few times a month Alcohol type: beer Patient Tobacco Use Status: Former Tobacco user Cigarette Packs Per Day: 1 Years Smoked: 20 e-Cigarette/Vaping Use: Never Used service: Yes ([employer] ) Current occupational status: retired Current occupational exposures/hazards: No Cognitive needs: No Hearing needs: Yes (wears hearing aids) Vision needs: No Review of Systems Const All systems reviewed & are unremarkable except as noted in HPI and below Physical Exam Const General: cooperative, healthy appearing, comfortable, no acute distress, well developed, alert and awake Orientation/consciousness: patient oriented x3 Limitations: no limitations HEENT Head: Yes normal to inspection, Yes normocephalic and Yes atraumatic Ears: hearing grossly normal bilaterally Eyes General: appearance normal, both eyes and all related structures Neck Neck: Yes normal visual inspection and Yes trachea midline Chest Chest palpation & inspection: normal inspection of the chest Resp Effort & Inspection: normal respiratory effort and able to speak in complete sentences Cardio Rate: regular rate GI Inspection: Yes normal to inspection General: Yes no CVA tenderness Back/Spine/Pelvis Back: no CVA tenderness Skin General skin exam: no rashes or lesions noted Neuro General: patient oriented x3 Extrem General: Yes normal to inspection Psych Appearance: grossly normal and well kempt Mental Status: mental status grossly normal Speech and movement: Normal speech and movement present and Clear speech present Affect: normal affect Attitude: cooperative Thought process: Normal thought process present Thought content: Normal thought content present Insight: Fair insight present (Psych) Judgement: Fair judgement present (Psych) Office Procedures Post Void Residual Post Residual Void Post Void Residual (PVR): 56 [id number] Void Residual by ultrasound Results AMB Urinalysis, Automated UA Leukoctes 0 Harris/uL Last Edit by [employer] on 11/10/24 08:56 UA Nitrite Last Edit by [employer] on 11/10/24 08:56 UA Urobilinogen 0.2 mg/dL Last Edit by [employer] on 11/10/24 08:56 UA Protein 15 mg/dL Last Edit by [employer] on 11/10/24 08:56 UA pH 5.5 Last Edit by [employer] on 11/10/24 08:56 UA Blood 0 Jerson/uL Last Edit by [employer] on 11/10/24 08:56 UA Specific [place] 1.020 Last Edit by [employer] on 11/10/24 08:56 UA Ketone Negative Last Edit by [employer]thor[employer] on 11/10/24 08:56 UA Bilirubin 0 mg/dL Last Edit by [employer]thorx on 11/10/24 08:56 UA Glucose 0 mg/dL Last Edit by Synthorx on 11/10/24 08:56 Results Reviewed Results Reviewed: Laboratory Last Values Urine pH (Auto) 5.5 11/10/24 08:16 Specific [place] (Auto) 1.020 11/10/24 08:16 Urine Protein (Auto) 15 mg/dL 11/10/24 08:16 Glucose (UA)(Auto) 0 mg/dL 11/10/24 08:16 Urine Ketones (Auto) Negative 11/10/24 08:16 Urine Blood (Auto) 0 Jerson/uL 11/10/24 08:16 Urine Bilirubin (Auto) 0 mg/dL 11/10/24 08:16 Urine Urobilinogen (Auto) 0.2 mg/dL 11/10/24 08:16 Leukocyte Esterase (Auto) 0 Harris/uL 11/10/24 08:16 Assessment & Plan Assessment & Plan (1) Lower urinary tract symptoms: Code(s): R39.9 - Unspecified symptoms and signs involving the genitourinary system Category: Medical Plan In office urinalysis results reviewed with the patient today; as noted above. PVR 59 mL. Will obtain retroperitoneal ultrasound for further assessment evaluation. Will obtain PSA for further assessment evaluation. We discussed bladder triggers/irritants. We discussed importance of limiting fluids 2-3 hours prior to bed to decrease episodes of nocturia. We discussed healthy bathroom behaviors. We discussed potential near future in office cystoscopy and or urodynamics if symptoms continue/persist and or worsen. Follow-up in 1-3 months with imaging, PSA, and PVR; or sooner with any issues, concerns, and or questions Orders: Orders AMB Post Void Residual by ultrasound 11/10/24 R39.11 - Hesitancy of micturition AMB Urinalysis Automated 11/10/24 Z13.9 - Encounter for screening, unspecified US retroperitoneal comp 11/10/24 R39.9 - Unspecified symptoms and signs involving the genitourinary system Prostate Specific Antigen 11/10/24 R39.9 - Unspecified symptoms and signs involving the genitourinary system Patient Instructions: The patient had an opportunity to ask questions regarding the treatment plan. All questions were answered. Physical exam, labs, and imaging were discussed and reviewed in detail. As well as risks, benefits, and discussion of treatment choices. No major barriers to understanding were identified. The patient expressed understanding and agreement with the above treatment plan. The patient was made aware they should contact our office by phone for worsening of their current condition, the appearance of new symptoms, or with any questions or concerns. Compliance is encouraged with any medications and follow up testing that is ordered. It is a privilege to be allowed the opportunity to participate in? your urological care.? Again, if you have any questions or concerns If you have any questions or concerns please do not hesitate to contact me. The office is [phone]. This note is constructed using voice recognition software. While every effort has been made to ensure accuracy actimize architect errors may have been included. Yours sincerely, ABISAI Anne Coding Level of Care Code New Pt Level 3 (64071) Diagnoses Lower urinary tract symptoms R39.9 CPT Codes Post Residual Void - PVR CPT Code: 14097-Idlb Void Residual by ultrasound ([id number])
== END 2024-11-10 08:43 | disposition home or self-care (01) ==
LOC: HO.HUSH 07:47
PROVIDERS: PCP Family Medicine; Visit Provider Nurse Practitioner Family
DX: Z13.9 Encounter for screening, unspecified (principal)

== ENCOUNTER → 2024-11-10 07:47 | Outpatient (BNVA) | payer MEDICARE, SELFPAY | PROVIDERS: PCP Family Medicine; Visit Provider Nurse Practitioner Family | DX: R39.11 Hesitancy of micturition (principal) | CPT/HCPCS: 51798; 81003; 99202 ==

== ENCOUNTER 2025-01-30 08:17 | Outpatient (REF) | payer MEDICARE, SELFPAY ==
--- OUTSIDE RECORDS SUMMARY | 2025-01-30 08:35 | XMS_ITS | Clinical Summary ---
Author Organization [facility] Address [address] [place] [address] Care Team Providers Care Park Interpretive Ranger Name Role Phone Feroz Lima MD Primary Care Provider [phone] Allergies No known active allergies Medications Medication [...] Vaccine (1 of 1 - PCV) 2014 RSV Adult > 60+ Yrs or Pregn ant (1 - 1-dose 75+ series) 2024 Influenza Vaccine (Season Ended) 2025 Hepatitis B Vaccines Aged Out No long er eligible based on patient's age to complete this topic RSV Ped < 20 months Aged Out No longe r eligible based on patient's age to complete this topic Care Teams Park Interpretive Ranger Relationship Specialty Start Date End Date Feroz Lima MD [address] [place] [id number] PCP - General Internal Medicine 02/26/18
[2025-01-30 11:45] LABS: Alanine Aminotransferase 26 U/L (0-40); Albumin Level 4.6 g/dL (3.5-5.0); Alkaline Phosphatase 102 U/L (39-117); Anion Gap 10 (12-20); Aspartate Amino Transferase 38 U/L (5-37); Bilirubin Total 0.6 mg/dL (0.0-1.0); Blood Urea Nitrogen 19 mg/dL (9-16); Calcium 9.4 mg/dL (8.4-10.2); Carbon Dioxide 27 mmol/L (22-29); Chloride 109 mmol/L (96-108); Estimated Glomerular Filt Rate > 60; Glucose Random 107 mg/dL (60-115); Potassium 4.1 mmol/L (3.3-5.1); Sodium 142 mmol/L (135-145); Total Protein 6.9 g/dL (6.5-8.0)
[2025-01-30 11:56] LABS: Prostate Specific Antigen 1.15 ng/mL (<0.05-4.0)
[2025-01-30 14:20] LABS: Appearance Urine Clear; Color Urine Yellow; Glucose Urine UA Negative (Negative); Leukocyte Esterase Urine Negative (Negative); Nitrite Urine Negative (Negative); Specific Gravity - Urine 1.015 (1.005-1.025); Urine Blood Negative (Negative); Urine Ketones Negative (Negative); Urine Protein Negative (Neg-Trace)
[2025-01-30 14:54] LABS: Microalbum/Creatinine Ratio Ur 8.1 ug/mg cr (<30)
== END 2025-01-30 08:18 | disposition home or self-care (01) ==
LOC: HO.WFDLDS 08:17
PROVIDERS: Referring Provider Nurse Practitioner Family; Visit Provider Family Medicine
DX: Z00.00 Encounter for general adult medical examination without abnormal findings (principal); R39.9 Unspecified symptoms and signs involving the genitourinary system; I10 Essential (primary) hypertension; Z12.5 Encounter for screening for malignant neoplasm of prostate
CPT/HCPCS: 36415; 80053; 81003; 82043; 82570; 84153

== ENCOUNTER 2025-02-06 15:40 | Outpatient (AMB) | payer MEDICARE, SELFPAY ==
--- NOTE | 2025-02-06 16:00 | A.OFFVIS_ITS ---
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 Gonzalez who was accompanied by his daughter at today's office visit. He has a past medical history of hypercholesteremia and hypertension. He presents to the office today for follow-up. Of note, patient was seen approximately 3 months ago as a new patient for a longstanding history of urinary issues he has been experiencing at which time a retroperitoneal ultrasound and PSA were ordered for further assessment evaluation. We also discussed lifestyle modifications to assist with lower urinary tract symptoms he had been reporting in experiencing. In discussion with the patient today he reports feeling symptoms have improved with lifestyle modifications. Recent renal imaging results 12/09 no no hydronephrosis. Right benign-appearing renal cyst otherwise unremarkable kidneys. Almost completely empty bladder. Prostate volume of 16 mL per radiology report. PSAs are as follows: PSA: 11/07 1.0, 02/08 1.2 He reports episodes of nocturia he had been experiencing have decreased with limiting fluids 2-3 hours prior to bed. He had previously trialed Flomax h owever felt this worsened his urinary symptoms. He otherwise denies hematuria, dysuria, foul smelling urine, changes to urinary stream, flank pain, fever, and or chills. We discussed at length potential causes of lower urinary tract symptoms patient was experiencing. We discussed bladder triggers and irritants as well as healthy bathroom behaviors. In office urinalysis results reviewed with the patient today. PVR 20ml's. He otherwise offers no other issues or concerns at this time. [facility] Medical History Broken wrist History of broken leg High cholesterol Hypertension Surgical History History of knee surgery History of rotator cuff surgery History of laminectomy Social History Household Members: Children Both parents involved: No Caregiver staying overnight: No Housing: House Are you a primary gericare aide teacher to a significant other at home: No Do you presently have visiting nurse or other home services: No 75 years or older and lives alone: No Alcohol intake: current Alcohol intake frequency: a few times a month Alcohol type: beer Patient Tobacco Use Status: Former Tobacco user Cigarette Packs Per Day: 1 Years Smoked: 20 e-Cigarette/Vaping Use: Never Used service: Yes ([email or web address] ) Current occupational status: retired Current occupational exposures/hazards: No Cognitive needs: No Hearing needs: Yes (wears hearing aids) Vision needs: No Review of Systems Const All systems reviewed & are unremarkable except as noted in HPI and below Physical Exam Const General: cooperative, healthy appearing, comfortable, no acute distress, well developed, alert and awake Orientation/consciousness: patient oriented x3 Limitations: no limitations HEENT Head: Yes normal to inspection, Yes normocephalic and Yes atraumatic Ears: hearing grossly normal bilaterally Eyes General: appearance normal, both eyes and all related structures Neck Neck: Yes normal visual inspection and Yes trachea midline Chest Chest palpation & inspection: normal inspection of the chest Resp Effort & Inspection: normal respiratory effort and able to speak in complete sentences Cardio Rate: regular rate GI Inspection: Yes normal to inspection General: Yes no CVA tenderness Back/Spine/Pelvis Back: no CVA tenderness Skin General skin exam: no rashes or lesions noted Neuro General: patient oriented x3 Extrem General: Yes normal to inspection Psych Appearance: grossly normal and well kempt Mental Status: mental status grossly normal Speech and movement: Normal speech and movement present and Clear speech present Affect: normal affect Attitude: cooperative Thought process: Normal thought process present Thought content: Normal thought content present Insight: Fair insight present (Psych) Judgement: Fair judgement present (Psych) Office Procedures Post Void Residual Post Residual Void Post Void Residual (PVR): 20 [id number] Void Residual by ultrasound Assessment & Plan Assessment & Plan (1) Urinary frequency: Code(s): R35.0 - Frequency of micturition Category: Medical (2) Urinary hesitancy: Code(s): R39.11 - Hesitancy of micturition Category: Medical (3) Lower urinary tract symptoms: Code(s): R39.9 - Unspecified symptoms and signs involving the genitourinary system Category: Medical (4) Renal cyst: Code(s): N28.1 - Cyst of kidney, acquired Category: Medical Plan In office urinalysis results reviewed with the patient's daughter today; as noted above. PVR 20 mL. Recent PSA results reviewed with the patient today; as noted above. Recent retroperitoneal ultrasound results reviewed with the patient today; as noted above. Will continue with surveillance monitoring. If he currently denies any bothersome urinary issues or concerns. He reports be happy with current voiding parameters. Will obtain PSA in 1 year. Follow-up in 1 year with PSA and PVR; or sooner with any issues, concerns, and or questions. Orders: Orders AMB Post Void Residual by ultrasound Today R35.0 - Frequency of micturition Prostate Specific Antigen 1 Year Z12.5 - Encounter for screening for malignant neoplasm of prostate Patient Instructions: The patient had an opportunity to ask questions regarding the treatment plan. All questions were answered. Physical exam, labs, and imaging were discussed and reviewed in detail. As well as risks, benefits, and discussion of treatment choices. No major barriers to understanding were identified. The patient expressed understanding and agreement with the above treatment plan. The patient was made aware they should contact our office by phone for worsening of their current condition, the appearance of new symptoms, or with any questions or concerns. Compliance is encouraged with any medications and follow up testing that is ordered. It is a privilege to be allowed the opportunity to participate in? your urological care.? Again, if you have any questions or concerns If you have any questions or concerns please do not hesitate to contact me. The office is [phone]. This note is constructed using voice recognition software. While every effort has been made to ensure accuracy break and load operator errors may have been included. Yours sincerely, ABISAI Anne Coding Level of Care Code Est Pt Level 3 (69291) Complex EM visit Add On G2211 Diagnoses Urinary frequency R35.0 Urinary hesitancy R39.11 Lower urinary tract symptoms R39.9 Renal cyst N28.1 CPT Codes Post Residual Void - PVR CPT Code: 91143-Ljwc Void Residual by ultrasound ([id number])
== END 2025-02-06 16:27 | disposition home or self-care (01) ==
PROVIDERS: PCP Family Medicine; Visit Provider Nurse Practitioner Family
DX: R35.0 Frequency of micturition (principal); R39.11 Hesitancy of micturition; R39.9 Unspecified symptoms and signs involving the genitourinary system; N28.1 Cyst of kidney, acquired
CPT/HCPCS: 99213; G2211

== ENCOUNTER → 2025-02-06 15:40 | Outpatient (BNVA) | payer MEDICARE, SELFPAY | PROVIDERS: PCP Family Medicine; Visit Provider Nurse Practitioner Family | DX: R35.0 Frequency of micturition (principal); N28.1 Cyst of kidney, acquired; R39.11 Hesitancy of micturition; R39.9 Unspecified symptoms and signs involving the genitourinary system | CPT/HCPCS: 51798; 99212 ==

== ENCOUNTER 2025-02-09 08:31 | Outpatient (AMB) | payer MEDICARE, SELFPAY ==
--- NOTE | 2025-02-09 08:39 | MHC.PC.OV ---
Vital Signs 02/09/25 08:43 Height 5 ft 11 in Weight 218 lb 2 oz BMI 30.4 BP 130/60 Blood Pressure Location Rt brachial Position Sitting Respiration 14 Pulse 79 Pulse Source Pulse Oximeter Temp 97.6 F Temp Source Oral Pulse Oximetry (%) 97 Oxygen Delivery Method Room Air Intake Visit Reasons: hypertension and chronic conditions. Intake Note: patient is scheduled for htn and chronic conditions patient is also having testicle pain and discomfort. Billing Rep Required: No Allergies No Known Allergies Allergy (Verified 02/09/25 08:41) Medication List - Last Reconciled 02/09/25 by Boubacar Gonzalez MD amlodipine 10 mg PO DAILY 90 days atorvastatin 80 mg PO DAILY fexofenadine (Alisia Allergy) PO lisinopril 40 mg PO DAILY 90 days multivitamin 1 tab PO DAILY vit C-E-zinc ta-mglz-npv-zeax 250 mg-200 unit -12.5 mg-1 mg (ICaps AREDS2) caps PO Tobacco use date assessed: 05/04/24 Dental Screening Dental Screen Date: 05/04/24 HPI hypertension and chronic conditions. HPI Details 74 y/o male presents to f/u hypertension, chronic conditions. BP today 130/60, 79p. He is on amlodipine 10mg, lisinopril 40mg daily. Reports testicular pain/discomfort. [facility] Medical History Broken wrist History of broken leg High cholesterol Hypertension Surgical History History of knee surgery History of rotator cuff surgery History of laminectomy Social History Household Members: Children Both parents involved: No Caregiver staying overnight: No Housing: House Are you a primary respite care provider to a significant other at home: No Do you presently have visiting nurse or other home services: No 75 years or older and lives alone: No Alcohol intake: current Alcohol intake frequency: a few times a month Alcohol type: beer Patient Tobacco Use Status: Former Tobacco user Cigarette Packs Per Day: 1 Years Smoked: 20 e-Cigarette/Vaping Use: Never Used service: Yes ([employer] ) Current occupational status: retired Current occupational exposures/hazards: No Cognitive needs: No Hearing needs: Yes (wears hearing aids) Vision needs: No Questionnaire Thrive Questionnaire Date Thrive assessed: 09/16/24 I am a: Patient What is your living situation today?: I have a steady place to live Within the past 12 months, did the food you bought not last and you didn't have the money to get more?: Never true Within the past 12 months, did you worry whether your food would run out before you got money to buy more?: Never true Do you have trouble paying for medicines?: No Do you have trouble getting transportation to medical appointments?: No Do you have trouble paying your heating and electricity bill?: No Do you have trouble taking care of your child, family member or friend?: No Do you have trouble with day-to-day activities such as bathing, preparing meals, shopping, managing finances, etc.?: No Are you currently unemployed and looking for a job?: No Are you interested in more education?: No Please select the resources that you would like help with: None Currently or been in a relationship where the following occur: No concerns reported THRIVE Score: 0 RAN-7 AMB Questionnaire RAN-7 Date RAN - 7 assessed: 05/04/24 Source: Developed by Drs. Ramon Valdovinos, Violeta Diaz, Dhaval Torrez and colleagues, with an educational rhina from [employer]. Review of Systems Const Denies chills, Denies fatigue, Denies fever(s), Denies headache(s) and Denies weakness ENT Denies dizziness and Denies headache(s) Card Denies dyspnea Resp Denies cough, Denies dyspnea, Denies wheezing and Denies other (shortness of breath) Musc Denies numbness and Denies tingling Neuro Denies dizziness, Denies headache(s), Denies numbness, Denies tingling and Denies weakness Psych Denies anxiety and Denies depression Endo Denies fatigue Aller/Immun Denies wheezing Physical exam (Primary Care) Vital Signs: Last Vital Signs Temp 97.6 F 02/09/25 08:43 Pulse 79 02/09/25 08:43 Resp 14 02/09/25 08:43 BP 130/60 02/09/25 08:43 Pulse Ox 97 02/09/25 08:43 Oxygen Delivery Method Room Air 02/09/25 08:43 BMI result Body Mass Index 30.4 Tobacco/Smoking Status: Tobacco use Status Tobacco use date assessed 05/04/24 02/09/25 08:48 Patient Tobacco Use Status Former Tobacco user 02/09/25 08:48 e-Cigarette/Vaping Use Never Used 02/09/25 08:48 Thrive Assessment: Date of Thrive Assessment Date Thrive assessed 09/16/24 02/09/25 08:48 Currently or been in a relationship where the following occur: No concerns reported Const General: well developed; No acute distress Nutritional Appearance: well nourished Orientation/consciousness: patient oriented x3 HENMT Head: Yes normocephalic and Yes atraumatic Eyes General: appearance normal, both eyes and all related structures Pupils: Equal, round and reactive pupils present EOM: EOMs intact bilaterally Resp Effort & Inspection: normal respiratory effort Auscultation: clear to auscultation bilaterally Cardio Rate: regular rate Rhythm: regular rhythm Heart sounds: S1 normal heart sound present, S2 normal heart sound present, no gallops, no murmurs and no rubs Neuro General: patient oriented x3 and gait normal Cranial nerves: Yes Equal, round and reactive pupils present Psych Affect: normal affect Coding Level of Care Code Est Pt Level 4 (84432) Diagnoses Hypertension I10 Testicular pain N50.819 Varicocele I86.1 Elevated liver enzymes R74.8 Assessment & Plan Assessment & Plan (1) Hypertension: Code(s): I10 - Essential (primary) hypertension Category: Medical Plan: Blood?pressure?is?fairly?well?controlled.??Goal?is less?than?130/80 Continue?current?medication?regimen (2) Testicular pain: Code(s): N50.819 - Testicular pain, unspecified Category: Medical Plan: Recently?saw?Urology?but?did?not?mention?that?he?was?having?left?testicular?pain. Appears?to?have?varicocele?and?would?like?to?consult?for?repair Referred?back?to?urology (3) Varicocele: Code(s): I86.1 - Scrotal varices Plan: As above (4) Elevated liver enzymes: Code(s): R74.8 - Abnormal levels of other serum enzymes Category: Medical Plan: Mildly?elevated?liver?enzyme These?tend?to fluctuate?slightly Hydrate?well Moderate?Tylenol?use?and?alcohol Will?continue?to?follow
[2025-02-09 08:43] VITALS: BP 130/60; PULSE 79; RESP 14; TEMP 36.4; O2SAT 97; BMI 30.4
--- OUTSIDE RECORDS SUMMARY | 2025-02-09 08:53 | XMS_ITS | Clinical Summary ---
Author Organization [facility] Address [address] [place] [address] Care Team Providers Care Beam Builder Name Role Phone Feroz Lima MD Primary Care Provider [phone] Allergies No known active allergies Medications Medication [...] age to complete this topic Care Teams Beam Builder Relationship Specialty Start Date End Date Feroz Lima MD [address] [place] [id number] PCP - General Internal Medicine 02/26/18
== END 2025-02-09 09:10 | disposition home or self-care (01) ==
LOC: HO.HMCFM 08:31
PROVIDERS: PCP Family Medicine; Visit Provider Family Medicine
DX: I10 Essential (primary) hypertension (principal); N50.819 Testicular pain, unspecified; I86.1 Scrotal varices; R74.8 Abnormal levels of other serum enzymes

== ENCOUNTER → 2025-02-09 08:31 | Outpatient (BNVA) | payer MEDICARE, SELFPAY | PROVIDERS: PCP Family Medicine; Visit Provider Family Medicine | DX: I10 Essential (primary) hypertension (principal); N50.819 Testicular pain, unspecified; I86.1 Scrotal varices; R74.8 Abnormal levels of other serum enzymes | CPT/HCPCS: 99212 ==

== ENCOUNTER 2025-04-03 13:45 | Outpatient (AMB) | payer MEDICARE, SELFPAY ==
--- OUTSIDE RECORDS SUMMARY | 2025-04-03 14:36 | XMS_ITS | Clinical Summary ---
Author Organization [facility] Address [address] [place] [address] Care Team Providers Care Telephone Ad Taker Name Role Phone Feroz Lima MD Primary Care Provider [phone] Allergies No known active allergies Medications Medication [...] - 1-dose 75+ series) 2024 Influenza Vaccine (#1) 2025 Hepatitis B Vaccines Aged Out No long er eligible based on patient's age to complete this topic RSV Ped < 20 months Aged Out No longe r eligible based on patient's age to complete this topic Care Teams Telephone Ad Taker Relationship Specialty Start Date End Date Feroz Lima MD [address] [place] [id number] PCP - General Internal Medicine 02/26/18
--- OUTSIDE RECORDS SUMMARY | 2025-04-03 14:36 | XMS_ITS ---
Author Name [facility] Organization Unknown Encounters Encounter Type Encounter Reason Primary Diagnosis Location Date Ambulatory [facility] ([facility] 07/08/2024
== END 2025-04-03 13:51 | disposition home or self-care (01) ==
LOC: HO.HMGAL 13:45
PROVIDERS: PCP Family Medicine; Visit Provider Registered Nurse Emergency
DX: J30.89 Other allergic rhinitis (principal)
CPT/HCPCS: 95117; 95165

== ENCOUNTER 2025-05-01 10:06 | Outpatient (AMB) | payer MEDICARE, SELFPAY ==
--- OUTSIDE RECORDS SUMMARY | 2025-05-01 12:42 | XMS_ITS | Clinical Summary ---
Author Organization [facility] Address [address] [place] [address] Care Team Providers Care Field Interviewer Name Role Phone Feroz Lima MD Primary Care Provider [phone] Allergies No known active allergies Medications Medication [...] age to complete this topic Care Teams Field Interviewer Relationship Specialty Start Date End Date Feroz Lima MD [address] [place] [id number] PCP - General Internal Medicine 02/26/18
== END 2025-05-01 10:11 | disposition home or self-care (01) ==
LOC: HO.HMGAL 10:06
PROVIDERS: PCP Family Medicine; Visit Provider Registered Nurse Emergency
DX: J30.89 Other allergic rhinitis (principal)
CPT/HCPCS: 95117; 95165

== ENCOUNTER 2025-05-31 12:07 | Outpatient (AMB) | payer MEDICARE, SELFPAY ==
--- OUTSIDE RECORDS SUMMARY | 2025-05-31 15:19 | XMS_ITS | Clinical Summary ---
Author Organization [facility] Address [address] [place] [address] Care Team Providers Care Clerk Stenographer Name Role Phone Feroz Lima MD Primary Care Provider [phone] Allergies No known active allergies Medications Medication [...] age to complete this topic Care Teams Clerk Stenographer Relationship Specialty Start Date End Date Feroz Lima MD [address] [place] [id number] PCP - General Internal Medicine 02/26/18
== END 2025-05-31 12:07 | disposition home or self-care (01) ==
LOC: HO.HMGAL 12:07
PROVIDERS: PCP Family Medicine; Visit Provider Registered Nurse Emergency
DX: J30.89 Other allergic rhinitis (principal)
CPT/HCPCS: 95117; 95165

== ENCOUNTER 2025-06-07 14:54 | Outpatient (AMB) | payer MEDICARE, SELFPAY ==
--- NOTE | 2025-06-07 14:59 | A.OFFVIS_ITS ---
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 He is a patient of Dr. Gonzalez. He seen for the following urologic conditions - lower urinary tract symptoms - testicular discomfort Here for assessment following ultrasound Scrotal ultrasound normal Normal testicular exam Reassurance provided Follow-up p.r.n. Lower urinary tract symptoms Longstanding Primary symptoms nocturia Previously trialed Flomax which worsened symptoms Prior lifestyle advice Prior ultrasound no evidence of hydro nephrosis prostate volume 20 cc PSA: 11/07 1.0, 02/08 1.2 PFSH Medical History Broken wrist History of broken leg High cholesterol Hypertension Surgical History History of knee surgery History of rotator cuff surgery History of laminectomy Social History Household Members: Children Both parents involved: No Caregiver staying overnight: No Housing: House Are you a primary healthcare interpreter to a significant other at home: No Do you presently have visiting nurse or other home services: No 75 years or older and lives alone: No Alcohol intake: current Alcohol intake frequency: a few times a month Alcohol type: beer Patient Tobacco Use Status: Former Tobacco user Cigarette Packs Per Day: 1 Years Smoked: 20 e-Cigarette/Vaping Use: Never Used service: Yes ([employer] ) Current occupational status: retired Current occupational exposures/hazards: No Cognitive needs: No Hearing needs: Yes (wears hearing aids) Vision needs: No Review of Systems Const Denies chills and Denies fever(s) Card Reports no additional complaints and Denies syncope Resp Denies cough GI Denies abdominal pain and Denies heartburn Reports as per HPI and Denies change in libido Neuro Denies syncope Psych Denies change in libido Endo Denies change in libido Physical Exam Const General: cooperative, healthy appearing, comfortable and no acute distress Orientation/consciousness: patient oriented x3 HEENT Face and sinus: Yes normal facial exam Mouth: moist mucous membranes Neck Neck: Yes normal visual inspection, Yes full ROM and Yes trachea midline Chest Chest palpation & inspection: normal inspection of the chest Resp Effort & Inspection: normal respiratory effort, able to speak in complete sentences and no respiratory distress GI Inspection: Yes normal to inspection Back/Spine/Pelvis Cervical Spine: normal cervical lordosis Thoracic/Lumbar Spine: thoracic and lumbar spine normal to inspection Skin General skin exam: no rashes or lesions noted Neuro General: patient oriented x3, gait normal, tone normal and moves all extremities Extrem General: Yes normal to inspection and Yes capillary refill normal Office Procedures Post Void Residual Post Residual Void Post Void Residual (PVR): 25 [id number]-[id number] Void Residual by ultrasound Results AMB Urinalysis, Automated UA Leukoctes 0 Harris/uL Last Edit by YANE Acuna on 06/07/25 15:24 UA Nitrite Last Edit by YANE Acuna on 06/07/25 15:24 UA Urobilinogen 0.2 mg/dL Last Edit by YANE Acuna on 06/07/25 15:2 4 UA Protein 0 mg/dL Last Edit by YANE Acuna on 06/07/25 15:24 UA pH 6.0 Last Edit by YANE Acuna on 06/07/25 15:24 UA Blood 0 Jerson/uL Last Edit by YANE Acuna on 06/07/25 15:24 UA Specific Stanton 1.010 Last Edit by YANE Acuna on 06/07/25 15: 24 UA Ketone Last Edit by YANE Acuna on 06/07/25 15:24 UA Bilirubin 0 mg/dL Last Edit by YANE Acuna on 06/07/25 15:24 UA Glucose 0 mg/dL Last Edit by YANE Acuna on 06/07/25 15:24 Assessment & Plan Assessment & Plan (1) Urinary frequency: Code(s): R35.0 - Frequency of micturition Category: Medical (2) Urinary hesitancy: Code(s): R39.11 - Hesitancy of micturition Category: Medical (3) Testicular pain: Code(s): N50.819 - Testicular pain, unspecified Category: Medical Plan P.r.n. follow-up Orders: Orders AMB Post Void Residual by ultrasound Today R39.9 - Unspecified symptoms and signs involving the genitourinary system AMB Urinalysis Automated Today Z13.9 - Encounter for screening, unspecified Patient Instructions: This note is constructed using voice recognition software. While every effort has been made to ensure accuracy telephone recorder errors may have been included. Imaging studies, laboratory and physical exam results were discussed and reviewed in detail. No major barriers to patient understanding were identified. An opportunity to ask questions regarding the treatment plan was provided. All questions were answered. The patient expressed understanding and agreement with the above treatment plan. The patient is aware they should contact our office by phone for worsening of their current condition or the appearance of new urologic symptoms. Compliance is encouraged with any medications and followup testing that is ordered. It is a privilege to participate in the urologic care of your patient. If you have any questions or concerns regarding treatment for the above conditions, or other urologic issues, please do not hesitate to contact me. The office telephone contact is [phone]. Sincerely, Dr Chung Ly MD, [facility] - Urology Compassionate Specialist Care for the Genitourinary System Coding Level of Care Code Est Pt Level 3 (75722) Diagnoses Urinary frequency R35.0 Urinary hesitancy R39.11 Testicular pain N50.819 CPT Codes Post Residual Void - PVR CPT Code: 77197-Rwvs Void Residual by ultrasound ([id number])
--- OUTSIDE RECORDS SUMMARY | 2025-06-07 21:08 | XMS_ITS | Clinical Summary ---
Author Organization [facility] Address [address] [place] [address] Care Team Providers Care Welder Production Line Gas Name Role Phone Feroz Lima MD Primary Care Provider [phone] Allergies No known active allergies Medications Medication [...] age to complete this topic Care Teams Welder Production Line Gas Relationship Specialty Start Date End Date Feroz Lima MD [address] [place] [id number] PCP - General Internal Medicine 02/26/18
== END 2025-06-07 15:27 | disposition home or self-care (01) ==
LOC: HO.HUSH 14:55
PROVIDERS: PCP Family Medicine; Visit Provider Urology
DX: R35.0 Frequency of micturition (principal); R39.11 Hesitancy of micturition; N50.819 Testicular pain, unspecified; Z13.9 Encounter for screening, unspecified
CPT/HCPCS: 99213

== ENCOUNTER → 2025-06-07 14:54 | Outpatient (BNVA) | payer MEDICARE, SELFPAY | PROVIDERS: PCP Family Medicine; Visit Provider Urology | DX: R35.0 Frequency of micturition (principal); R39.11 Hesitancy of micturition; N50.812 Left testicular pain; N50.811 Right testicular pain; Z13.9 Encounter for screening, unspecified | CPT/HCPCS: 51798; 81003; 99212 ==

== ENCOUNTER 2025-06-12 08:35 | Outpatient (REF) | payer MEDICARE, SELFPAY ==
--- OUTSIDE RECORDS SUMMARY | 2025-06-12 08:59 | XMS_ITS | Clinical Summary ---
Author Organization [facility] Address [address] [place] [address] Care Team Providers Care Sandwich Hand Name Role Phone Feroz Lima MD Primary Care Provider [phone] Allergies No known active allergies Medications Medication [...] age to complete this topic Care Teams Sandwich Hand Relationship Specialty Start Date End Date Feroz Lima MD [address] [place] [id number] PCP - General Internal Medicine 02/26/18
[2025-06-12 11:56] LABS: Hematocrit 40.7 % (42.0-52.0); Hemoglobin 13.2 g/dl (14.0-18.0); Mean Corpuscular HGB Conc 32.4 g/dl (31.0-36.0); Mean Corpuscular Hemoglobin 30.8 pg (27.0-33.0); Mean Corpuscular Volume 94.9 fL (80.0-98.0); NRBC Abs Auto 0.000 X10*3/uL (0.0-0.012); NRBC Pct Auto 0.0 /100WBC (0.0-0.2); Platelet Count 179 X10*3/uL (160-400); Red Blood Count 4.29 X10*6/uL (4.60-5.80)
[2025-06-12 11:58] LABS: WBC ABN SCTR FOR CBC 1
[2025-06-12 12:19] LABS: Alanine Aminotransferase 26 U/L (0-40); Albumin Level 4.7 g/dL (3.5-5.0); Alkaline Phosphatase 99 U/L (39-117); Anion Gap 11 (12-20); Aspartate Amino Transferase 33 U/L (5-37); Blood Urea Nitrogen 26 mg/dL (9-16); Calcium 9.4 mg/dL (8.4-10.2); Carbon Dioxide 28 mmol/L (22-29); Chloride 109 mmol/L (96-108); Estimated Glomerular Filt Rate > 60; Potassium 4.2 mmol/L (3.3-5.1); Sodium 144 mmol/L (135-145); Total Protein 7.0 g/dL (6.5-8.0)
[2025-06-12 12:39] LABS: Atypical Lymphs Percent Manual 1 % (0-6); Band Neutrophils Percent 1 % (3-5); Lymphocytes Percent Manual 78 % (20-40); Monocytes Percent Manual 2 % (2-11); Neutrophils Percent Manual 18 % (45-73)
[2025-06-12 12:40] LABS: RBC Morphology NORMAL; Smudge Cells PRESENT
[2025-06-12 12:41] LABS: Atypical Lymph Absolute Manual 0.2 x10*3/uL; Lymphocytes Absolute Manual 18.3 X10*3/uL (1.2-4.9); Monocytes Absolute Manual 0.5 X10*3/uL (0.1-1.2); Neutrophils Absolute Manual 4.4 X10*3/uL (2.0-8.3); White Blood Count 23.4 X10*3/uL (4.8-10.8)
== END 2025-06-12 08:36 | disposition home or self-care (01) ==
LOC: HO.WFDLDS 08:35
PROVIDERS: Visit Provider Family Medicine
DX: Z00.00 Encounter for general adult medical examination without abnormal findings (principal); I10 Essential (primary) hypertension; D64.9 Anemia, unspecified
CPT/HCPCS: 36415; 80053; 85007; 85025; 85027

== ENCOUNTER 2025-06-14 08:13 | Outpatient (AMB) | payer MEDICARE, SELFPAY ==
--- NOTE | 2025-06-14 08:31 | A.OFFPC_ITS ---
Vital Signs 06/14/25 08:35 Height 5 ft 11 in Weight 217 lb 6 oz BMI 30.3 BP 130/60 Blood Pressure Location Rt brachial Position Standing Respiration 14 Pulse 74 Pulse Source Pulse Oximeter Temp 97.6 F Temp Source Temporal Artery Scan Pulse Oximetry (%) 97 Oxygen Delivery Method Room Air Intake Visit Reasons: f/u HTN, chronic conditions - see comments Intake Note: Kenneth presents in the office today for a follow up to hypertension. Allergies No Known Allergies Allergy (Verified 06/14/25 08:33) Medication List - Last Reconciled 06/14/25 by Boubacar Gonzalez MD amlodipine 10 mg PO DAILY 90 days atorvastatin 80 mg PO DAILY 90 days fexofenadine (Alisia Allergy) PO lisinopril 40 mg PO DAILY 90 days multivitamin 1 tab PO DAILY vit C-E-zinc mw-rlmu-uig-zeax 250 mg-200 unit -12.5 mg-1 mg (ICaps AREDS2) caps PO Tobacco use date assessed: 06/14/25 Fall risk assessment: 1 Fall in past year Last assessed Fall Risk: 06/14/25 Dental Screening Dental Screen Date: 06/14/25 Did you have a dental visit in the last 12 months?: Yes Did you have a dental problem in the last 6 months where you did not have access to dental care?: No Was dental information given to patient?: Patient has dentist HPI f/u HTN, chronic conditions - see comments HPI Details Patient presents for follow-up hypertension and chronic conditions Blood pressure 130/60 today. He is taking amlodipine and lisinopril as prescribed. Review of labs shows elevated fasting blood sugar. His A1c has been in normal range. He notes he has been eating more sugars and carbs lately. Patient notes he has mass on his neck and reported this to his hematology oncologist. History of CLL. He has an appointment for an ultrasound of his neck and follow- up with Heme-Onc Patient feels well today. No other complaints [facility] Medical History Broken wrist History of broken leg High cholesterol Hypertension Surgical History (Reviewed 02/06/25 @ 16:17 by Kaiden Broussard [facility]) History of knee surgery History of rotator cuff surgery History of laminectomy Social History (Updated 06/14/25 @ 08:34 by Julia Patel [facility]) Household Members: Children Both parents involved: No Caregiver staying overnight: No Housing: House Are you a primary physician locums urgent care to a significant other at home: No Do you presently have visiting nurse or other home services: No 75 years or older and lives alone: No Alcohol intake: current Alcohol intake frequency: a few times a month Alcohol type: beer Patient Tobacco Use Status: Former Tobacco user Cigarette Packs Per Day: 1 Years Smoked: 20 e-Cigarette/Vaping Use: Never Used Second Hand Smoke Exposure: No service: Yes ([employer] ) Current occupational status: retired Current occupational exposures/hazards: No Cognitive needs: No Hearing needs: Yes (wears hearing aids) Vision needs: No Questionnaire Thrive Questionnaire Date Thrive assessed: 09/16/24 I am a: Patient What is your living situation today?: I have a steady place to live Within the past 12 months, did the food you bought not last and you didn't have the money to get more?: Never true Within the past 12 months, did you worry whether your food would run out before you got money to buy more?: Never true Do you have trouble paying for medicines?: No Do you have trouble getting transportation to medical appointments?: No Do you have trouble paying your heating and electricity bill?: No Do you have trouble taking care of your child, family member or friend?: No Do you have trouble with day-to-day activities such as bathing, preparing meals, shopping, managing finances, etc.?: No Are you currently unemployed and looking for a job?: No Are you interested in more education?: No Please select the resources that you would like help with: None Currently or been in a relationship where the following occur: No concerns reported THRIVE Score: 0 RAN-7 AMB Questionnaire RAN-7 Date RAN - 7 assessed: 05/04/24 Source: Developed by Drs. Ramon Valdovinos, Violeta Diaz, Dhaval Torrez and colleagues, with an educational rhina from [employer]. Review of Systems Const Denies chills, Denies fatigue, Denies fever(s), Denies headache(s) and Denies weakness ENT Denies dizziness and Denies headache(s) Card Denies dyspnea Resp Denies cough, Denies dyspnea, Denies wheezing and Denies other (shortness of breath) Musc Denies numbness and Denies tingling Neuro Denies dizziness, Denies headache(s), Denies numbness, Denies tingling and Denies weakness Psych Denies anxiety and Denies depression Endo Denies fatigue Aller/Immun Denies wheezing Physical exam (Primary Care) Vital Signs: Last Vital Signs Temp 97.6 F 06/14/25 08:35 Pulse 74 06/14/25 08:35 Resp 14 06/14/25 08:35 BP 130/60 06/14/25 08:35 Pulse Ox 97 06/14/25 08:35 Oxygen Delivery Method Room Air 06/14/25 08:35 BMI result Body Mass Index 30.3 Tobacco/Smoking Status: Tobacco use Status Tobacco use date assessed 06/14/25 06/14/25 08:37 Patient Tobacco Use Status Former Tobacco user 06/14/25 08:34 e-Cigarette/Vaping Use Never Used 06/14/25 08:34 Thrive Assessment: Date of Thrive Assessment Date Thrive assessed 09/16/24 06/14/25 08:32 Currently or been in a relationship where the following occur: No concerns reported Const General: well developed; No acute distress Nutritional Appearance: well nourished Orientation/consciousness: patient oriented x3 HENMT Head: Yes normocephalic and Yes atraumatic Eyes General: appearance normal, both eyes and all related structures Pupils: Equal, round and reactive pupils present EOM: EOMs intact bilaterally Resp Effort & Inspection: normal respiratory effort Neuro General: patient oriented x3 and gait normal Cranial nerves: Yes Equal, round and reactive pupils present Psych Affect: normal affect Coding Level of Care Code Est Pt Level 5 (71685) Diagnoses Hypertension I10 Elevated fasting glucose R73.01 Elevated liver enzymes R74.8 Testicular pain N50.819 CLL (chronic lymphocytic leukemia) C91.10 Neck mass R22.1 Immunization counseling Z71.85 Assessment & Plan Assessment & Plan (1) Hypertension: Code(s): I10 - Essential (primary) hypertension Category: Medical Plan: Blood pressure is controlled. Goal is less than 140/90 Continue current medication (2) Elevated fasting glucose: Code(s): R73.01 - Impaired fasting glucose Category: Medical Plan: Will check A1c with next blood draw Encouraged a diet lower in sugars and starches (3) Elevated liver enzymes: Code(s): R74.8 - Abnormal levels of other serum enzymes Category: Medical Plan: Now back in normal range Will monitor periodically Hydrate well and work at weight loss (4) Testicular pain: Code(s): N50.819 - Testicular pain, unspecified Category: Medical Plan: Recent scrotal ultrasound and follow-up with Urology. Reassurance was provided. Recommended good supportive undergarments but keep cool (5) CLL (chronic lymphocytic leukemia): Code(s): C91.10 - Chronic lymphocytic leukemia of B-cell type not having achieved remission Category: Medical Plan: CLL and followed by Hematology-Oncology. Patient also notes recent development of a neck mass He has an ultrasound scheduled and will follow-up Heme-Onc (6) Neck mass: Code(s): R22.1 - Localized swelling, mass and lump, neck Category: Medical Plan: As above (7) Immunization counseling: Code(s): Z71.85 - Encounter for immunization safety counseling Category: Medical Plan: Patient had recent flu shot Reviewed immunizations with patient and he is up-to-date Orders: Orders Complete Blood Count Auto Diff 06/14/25 Z00.00 - Encounter for general adult m edical examination without abnormal findings Prostate Specific Antigen Scr 06/14/25 Z12.5 - Encounter for screening for malignant neoplasm of prostate Hemoglobin A1c 06/14/25 R73.01 - Impaired fasting glucose Comprehensive [place]. Panel Fast 06/14/25 Z00.00 - Encounter for general adult medical examination without abnormal findings Lipid Panel 06/14/25 Z00.00 - Encounter for general adult medical examination without abnormal findings Microalbumin, Random (w Creat) 06/14/25 I10 - Essential (primary) hypertension TSH reflex Free T4 06/14/25 Z00.00 - Encounter for general adult medical examination without abnormal findings UA CC w/rflx Micro + Cult 06/14/25 Z00.00 - Encounter for general adult medical examination without abnormal findings
[2025-06-14 08:35] VITALS: BP 130/60; PULSE 74; RESP 14; TEMP 36.4; O2SAT 97; BMI 30.3
== END 2025-06-14 09:11 | disposition home or self-care (01) ==
LOC: HO.HMCFM 08:13
PROVIDERS: PCP Family Medicine; Visit Provider Family Medicine
DX: I10 Essential (primary) hypertension (principal); R73.01 Impaired fasting glucose; R74.8 Abnormal levels of other serum enzymes; N50.819 Testicular pain, unspecified; C91.10 Chronic lymphocytic leukemia of B-cell type not having achieved remission; R22.1 Localized swelling, mass and lump, neck; Z71.85 Encounter for immunization safety counseling

== ENCOUNTER → 2025-06-14 08:13 | Outpatient (BNVA) | payer MEDICARE, SELFPAY | PROVIDERS: PCP Family Medicine; Visit Provider Family Medicine | DX: I10 Essential (primary) hypertension (principal); R73.01 Impaired fasting glucose; R74.8 Abnormal levels of other serum enzymes; N50.819 Testicular pain, unspecified; C91.10 Chronic lymphocytic leukemia of B-cell type not having achieved remission; R22.1 Localized swelling, mass and lump, neck; Z71.85 Encounter for immunization safety counseling; Z79.899 Other long term (current) drug therapy | CPT/HCPCS: 99212 ==

== ENCOUNTER 2025-06-28 09:43 | Outpatient (AMB) | payer MEDICARE, SELFPAY ==
--- OUTSIDE RECORDS SUMMARY | 2025-06-28 11:02 | XMS_ITS | Clinical Summary ---
Author Organization [facility] Address [address] [place] [address] Care Team Providers Care Community Organization Worker Name Role Phone Feroz Lima MD Primary Care Provider [phone] Allergies No known active allergies Medications Medication [...] age to complete this topic Care Teams Community Organization Worker Relationship Specialty Start Date End Date Feroz Lima MD [address] [place] [id number] PCP - General Internal Medicine 02/26/18
== END 2025-06-28 09:44 | disposition home or self-care (01) ==
LOC: HO.HMGAL 09:43
PROVIDERS: PCP Family Medicine; Visit Provider Registered Nurse Emergency
DX: J30.89 Other allergic rhinitis (principal)
CPT/HCPCS: 95117; 95165

== ENCOUNTER 2025-07-26 09:14 | Outpatient (AMB) | payer MEDICARE, SELFPAY | END 2025-07-26 09:17 | disposition home or self-care (01) | LOC: HO.HMGAL 09:14 | PROVIDERS: PCP Family Medicine; Visit Provider Registered Nurse Emergency | DX: J30.89 Other allergic rhinitis (principal) | CPT/HCPCS: 95117; 95165 ==

== ENCOUNTER 2025-07-27 15:44 | Outpatient (AMB) | payer MEDICARE, SELFPAY ==
--- NOTE | 2025-07-27 15:48 | MHC.PC.OV ---
Vital Signs 07/27/25 15:52 Height 5 ft 11 in Weight 220 lb 8 oz BMI 30.8 BP 140/58 H Blood Pressure Location Rt brachial Position Sitting Respiration 17 Pulse 61 Pulse Source Pulse Oximeter Temp 97.8 F Temp Source Oral Pulse Oximetry (%) 96 Oxygen Delivery Method Room Air Intake Visit Reasons: FMLA Intake Note: FMLA Manager Culinary Required: No Accompanied by: Daughter Allergies No Known Allergies Allergy (Verified 07/27/25 15:51) Medication List - Last Reconciled 07/27/25 by Boubacar Gonzalez MD amlodipine 10 mg PO DAILY 90 days atorvastatin 80 mg PO DAILY 90 days fexofenadine (Alisia Allergy) PO lisinopril 40 mg PO DAILY 90 days multivitamin 1 tab PO DAILY vit C-E-zinc mk-novl-pqw-zeax 250 mg-200 unit -12.5 mg-1 mg (ICaps AREDS2) caps PO Tobacco use date assessed: 06/14/25 Fall risk assessment: No Falls in past year Last assessed Fall Risk: 07/27/25 Dental Screening Dental Screen Date: 06/14/25 HPI FMLA HPI Details 74 y/o male presents for FMLA paperwork. Requesting intermittent leave for work. Hx of CLL. Has been following up with [facility] from [facility]. [facility] Medical History Broken wrist History of broken leg High cholesterol Hypertension Surgical History History of knee surgery History of rotator cuff surgery History of laminectomy Social History (Updated 07/27/25 @ 15:52 by Ben Matson CMA) Household Members: Children Both parents involved: No Caregiver staying overnight: No Housing: House Are you a primary assistant child care teacher to a significant other at home: No Do you presently have visiting nurse or other home services: No 75 years or older and lives alone: No Alcohol intake: current Alcohol intake frequency: a few times a month Alcohol type: beer Patient Tobacco Use Status: Former Tobacco user Cigarette Packs Per Day: 1 Years Smoked: 20 e-Cigarette/Vaping Use: Never Used Second Hand Smoke Exposure: No service: Yes ([employer] ) Current occupational status: retired Current occupational exposures/hazards: No Cognitive needs: No Hearing needs: Yes (wears hearing aids) Vision needs: No Questionnaire PHQ-9 Over the last 2 weeks, how often have you been bothered by any of the following problems? 1. Little interest or pleasure in doing things: not at all 2. Feeling down, depressed, or hopeless: not at all 3. Trouble falling or staying asleep, or sleeping too much: not at all 4. Feeling tired or having little energy: not at all 5. Poor appetite or overeating: not at all 6. Feeling bad about yourself - or that you are a failure or have let yourself or your family down: not at all 7. Trouble concentrating on things, such as reading the newspaper or watching television: not at all 8. Moving or speaking so slowly that other people could have noticed. Or the opposite - being so fidgety or restless that you have been moving around a lot more than usual: not at all 9. Thoughts that you would be better off or of hurting yourself in some way: not at all Total score: 0 Depression Screening Interpretation: Negative Depression Screening Done: Yes 16542 - PHQ-9 Billing: Yes Source: Developed by Drs. Ramon Valdovinos, Violeta Diaz, Dhaval Torrez and colleagues, with an educational rhina from [employer] Thrive Questionnaire Date Thrive assessed: 09/16/24 I am a: Patient What is your living situation today?: I have a steady place to live Within the past 12 months, did the food you bought not last and you didn't have the money to get more?: Never true Within the past 12 months, did you worry whether your food would run out before you got money to buy more?: Never true Do you have trouble paying for medicines?: No Do you have trouble getting transportation to medical appointments?: No Do you have trouble paying your heating and electricity bill?: No Do you have trouble taking care of your child, family member or friend?: No Do you have trouble with day-to-day activities such as bathing, preparing meals, shopping, managing finances, etc.?: No Are you currently unemployed and looking for a job?: No Are you interested in more education?: No Please select the resources that you would like help with: None Currently or been in a relationship where the following occur: No concerns reported THRIVE Score: 0 AUDIT C Alcohol Use Questionnaire (AUDIT-C) 1. How often do you have a drink containing alcohol?: 2-4 times a month Total Score: 2 RAN-7 AMB Questionnaire RAN-7 Date RAN - 7 assessed: 05/04/24 Source: Developed by Drs. Ramon Valdovinos, Violeta Diaz, Dhaval Torrez and colleagues, with an educational rhina from [employer] Review of Systems Const Denies chills, Denies fatigue, Denies fever(s), Denies headache(s) and Denies weakness ENT Denies dizziness and Denies headache(s) Card Denies dyspnea Resp Denies cough, Denies dyspnea, Denies wheezing and Denies other (shortness of breath) Musc Denies numbness and Denies tingling Neuro Denies dizziness, Denies headache(s), Denies numbness, Denies tingling and Denies weakness Psych Denies anxiety and Denies depression Endo Denies fatigue Aller/Immun Denies wheezing Physical exam (Primary Care) Vital Signs: Last Vital Signs Temp 97.8 F 07/27/25 15:52 Pulse 61 07/27/25 15:52 Resp 17 07/27/25 15:52 BP 140/58 H 07/27/25 15:52 Pulse Ox 96 07/27/25 15:52 Oxygen Delivery Method Room Air 07/27/25 15:52 BMI result Body Mass Index 30.8 Tobacco/Smoking Status: Tobacco use Status Tobacco use date assessed 06/14/25 07/27/25 15:54 Patient Tobacco Use Status Former Tobacco user 07/27/25 15:54 e-Cigarette/Vaping Use Never Used 07/27/25 15:54 PHQ-9: PHQ-9 Score PHQ-9: Total score 0 07/27/25 15:54 Depression Screening Interpretation: Negative Thrive Assessment: Date of Thrive Assessment Date Thrive assessed 09/16/24 07/27/25 15:54 Currently or been in a relationship where the following occur: No concerns reported Const General: well developed; No acute distress Nutritional Appearance: well nourished Orientation/consciousness: patient oriented x3 HENMT Head: Yes normocephalic and Yes atraumatic Eyes General: appearance normal, both eyes and all related structures Pupils: Equal, round and reactive pupils present EOM: EOMs intact bilaterally Resp Effort & Inspection: normal respiratory effort Auscultation: clear to auscultation bilaterally Cardio Rate: regular rate Rhythm: regular rhythm Heart sounds: S1 normal heart sound present, S2 normal heart sound present, no gallops, Murmur heart sound present and no rubs Neuro General: patient oriented x3 and gait normal Cranial nerves: Yes Equal, round and reactive pupils present Psych Affect: normal affect Coding Level of Care Code Est Pt Level 3 (81103) Diagnoses CLL (chronic lymphocytic leukemia) C91.10 Additional Codes PHQ-9 - 47115 - PHQ-9 Billing: Yes ([id number]) Assessment & Plan Assessment & Plan (1) CLL (chronic lymphocytic leukemia): Code(s): C91.10 - Chronic lymphocytic leukemia of B-cell type not having achieved remission Category: Medical Plan: Patient presents for [facility] paperwork for intermittent leave for his daughter to assist him with medical visits, evaluation and treatments during exacerbations where she will provide basic care, nutritional support, hygiene, care coordination as well as transportation. Patient has CLL and may require multiple evaluations and treatments by Oncology or PCP during exacerbations or infections. Patient's daughter may need intermittent leave for medical visits and treatments up to 2 times per month and up to 1 day per episode. She may need intermittent leave for exacerbations of up to 1 time per month and up to 2 days per episode. The above is for 07/27/2025 through 07/27/2026 [facility] paperwork is completed and will be scanned in chart
[2025-07-27 15:52] VITALS: BP 140/58; PULSE 61; RESP 17; TEMP 36.6; O2SAT 96; BMI 30.8
--- OUTSIDE RECORDS SUMMARY | 2025-07-27 23:07 | XMS_ITS | Clinical Summary ---
Author Organization [facility] Prior to 01/14/25 Address [address] [place] [address] Care Team Providers Care Electric Range Assembler Name Role Phone Feroz Lima MD Primary [...] age to complete this topic Care Teams Electric Range Assembler Relationship Specialty Start Date End Date Feroz Lima MD [address] [place] [id number] PCP - General Internal Medicine 02/26/18
== END 2025-07-27 16:50 | disposition home or self-care (01) ==
LOC: HO.HMCFM 15:45
PROVIDERS: PCP Family Medicine; Visit Provider Family Medicine
DX: C91.10 Chronic lymphocytic leukemia of B-cell type not having achieved remission (principal)

== ENCOUNTER → 2025-07-27 15:44 | Outpatient (BNVA) | payer MEDICARE, SELFPAY | PROVIDERS: PCP Family Medicine; Visit Provider Family Medicine | DX: Z76.89 Persons encountering health services in other specified circumstances (principal); C91.10 Chronic lymphocytic leukemia of B-cell type not having achieved remission; Z13.31 Encounter for screening for depression | CPT/HCPCS: 96127; 99212 ==